=== PATIENT | male | born 1975 | race Caucasian/White ===

== ENCOUNTER 2021-02-26 10:52 | Outpatient (REF) | payer BC, SELFPAY ==
[2021-02-26 11:18] LABS: MANUAL DIFF FLAG NO
[2021-02-26 11:39] LABS: Basophils Absolute Auto 0.1 X10*3/uL (0.0-0.2); Basophils Percent Auto 1.2 % (0-2); Eosinophils Absolute Auto 0.3 X10*3/uL (0.0-0.4); Eosinophils Percent Auto 4.2 % (0-4); Hematocrit 47.9 % (42-52); Hemoglobin 15.7 g/dl (14.0-18.0); Imm Gran Abs Auto 0.03 X10*3/uL (0.00-0.03); Imm Gran Pct Auto 0.5 % (0.0-0.4); Lymphocytes Absolute Auto 1.2 X10*3/uL (1.2-4.9); Lymphocytes Percent Auto 20.5 % (20-40); Mean Corpuscular HGB Conc 32.8 g/dl (31.0-36.0); Mean Corpuscular Hemoglobin 30.8 pg (27.0-33.0); Mean Corpuscular Volume 94.1 fL (80-98); Mean Platelet Volume 10.8 fL (9.4-12.4); Monocytes Absolute Auto 0.5 X10*3/uL (0.1-1.2); NRBC Pct Auto 0.5 /100WBC (0.0-0.2); Neutrophils Absolute Auto 3.9 X10*3/uL (2.0-8.3); Neutrophils Percent Auto 65.6 % (45-73); Platelet Count 197 X10*3/uL (160-400); Red Blood Count 5.09 X10*6/uL (4.60-5.80); Red Cell Distribution Width 12.8 % (11.0-16.0); White Blood Count 5.9 X10*3/uL (4.8-10.8)
[2021-02-26 11:47] LABS: Glucose Urine UA NEG (NEG); Leukocyte Esterase Urine NEG (NEG); Nitrite Urine NEG (NEG); Urine Blood NEG (NEG); Urine Ketones NEG (NEG); Urine Protein NEG (NEG-TRACE)
[2021-02-26 11:48] LABS: Appearance Urine HAZY; Color Urine YELLOW
[2021-02-26 12:10] LABS: Alanine Aminotransferase 29 U/L (0-40); Albumin Level 4.2 g/dL (3.5-5.0); Alkaline Phosphatase 64 U/L (39-117); Anion Gap 17 (12-20); Aspartate Amino Transferase 41 U/L (5-37); Bilirubin Total 0.5 mg/dL (0.0-1.0); Blood Urea Nitrogen 13 mg/dL (9-16); Calcium 9.3 mg/dL (8.4-10.2); Carbon Dioxide 24 mmol/L (22-29); Chloride 105 mmol/L (96-108); Cholesterol 210 mg/dL; Estimated Glomerular Filt Rate 59; Glucose Fasting 96 mg/dL (60-99); HDL Cholesterol 71 mg/dL; LDL Cholesterol Calculated 114 mg/dl; Sodium 141 mmol/L (135-145); Total Protein 6.4 g/dL (6.5-8.0); Triglycerides 128 mg/dL
[2021-02-26 12:36] LABS: PSA,Total (Free>4and<10) 1.97 ng/mL (0.00-4.00)
[2021-02-26 13:44] LABS: Free T4 (Free Thyroxine) 1.06 ng/dL (0.71-1.85)
== END 2021-02-26 10:53 | disposition home or self-care (01) ==
LOC: HO.LNP 10:52
PROVIDERS: PCP Internal Medicine; Visit Provider Internal Medicine
DX: Z00.00 Encounter for general adult medical examination without abnormal findings (principal); Z12.5 Encounter for screening for malignant neoplasm of prostate; E03.9 Hypothyroidism, unspecified
CPT/HCPCS: 80053; 80061; 81003; 84153; 84439; 84443; 85025

== ENCOUNTER 2021-02-28 14:12 | Outpatient (REF) | payer BC, SELFPAY ==
[2021-02-28 14:16] LABS: MANUAL DIFF FLAG NO
[2021-02-28 14:28] LABS: Basophils Absolute Auto 0.1 X10*3/uL (0.0-0.2); Basophils Percent Auto 1.4 % (0-2); Eosinophils Absolute Auto 0.1 X10*3/uL (0.0-0.4); Eosinophils Percent Auto 1.5 % (0-4); Hematocrit 46.8 % (42-52); Hemoglobin 15.5 g/dl (14.0-18.0); Lymphocytes Absolute Auto 1.2 X10*3/uL (1.2-4.9); Lymphocytes Percent Auto 22.6 % (20-40); Mean Corpuscular HGB Conc 33.1 g/dl (31.0-36.0); Mean Corpuscular Hemoglobin 31.1 pg (27.0-33.0); Mean Corpuscular Volume 93.8 fL (80-98); Mean Platelet Volume 10.5 fL (9.4-12.4); Monocytes Absolute Auto 0.4 X10*3/uL (0.1-1.2); Monocytes Percent Auto 8.3 % (2-11); Neutrophils Absolute Auto 3.4 X10*3/uL (2.0-8.3); Neutrophils Percent Auto 66.2 % (45-73); Platelet Count 222 X10*3/uL (160-400); Red Blood Count 4.99 X10*6/uL (4.60-5.80); Red Cell Distribution Width 12.6 % (11.0-16.0); White Blood Count 5.2 X10*3/uL (4.8-10.8)
== END 2021-02-28 14:13 | disposition home or self-care (01) ==
LOC: HO.LNP 14:12
PROVIDERS: Visit Provider Internal Medicine
DX: R79.89 Other specified abnormal findings of blood chemistry (principal)
CPT/HCPCS: 85025

== ENCOUNTER 2021-04-30 10:20 | Outpatient (REF) | payer BC, SELFPAY ==
[2021-04-30 10:23] LABS: MANUAL DIFF FLAG NO
[2021-04-30 10:48] LABS: Basophils Absolute Auto 0.1 X10*3/uL (0.0-0.2); Eosinophils Absolute Auto 0.1 X10*3/uL (0.0-0.4); Eosinophils Percent Auto 2.9 % (0-4); Hematocrit 43.5 % (42-52); Hemoglobin 14.4 g/dl (14.0-18.0); Imm Gran Abs Auto 0.02 X10*3/uL (0.00-0.03); Imm Gran Pct Auto 0.4 % (0.0-0.4); Lymphocytes Absolute Auto 1.2 X10*3/uL (1.2-4.9); Mean Corpuscular HGB Conc 33.1 g/dl (31.0-36.0); Mean Corpuscular Hemoglobin 31.5 pg (27.0-33.0); Mean Corpuscular Volume 95.2 fL (80-98); Mean Platelet Volume 10.8 fL (9.4-12.4); Monocytes Absolute Auto 0.7 X10*3/uL (0.1-1.2); Monocytes Percent Auto 14.8 % (2-11); Neutrophils Absolute Auto 2.7 X10*3/uL (2.0-8.3); Neutrophils Percent Auto 56.9 % (45-73); Platelet Count 181 X10*3/uL (160-400); Red Blood Count 4.57 X10*6/uL (4.60-5.80); Red Cell Distribution Width 12.8 % (11.0-16.0); White Blood Count 4.8 X10*3/uL (4.8-10.8)
== END 2021-04-30 10:21 | disposition home or self-care (01) ==
LOC: HO.LNP 10:20
PROVIDERS: Visit Provider Internal Medicine
DX: R79.89 Other specified abnormal findings of blood chemistry (principal)
CPT/HCPCS: 85025

== ENCOUNTER 2021-06-04 10:29 | Outpatient (REF) | payer BC, SELFPAY ==
[2021-06-04 11:39] LABS: TSH reflex Free T4 0.52 uIU/mL (0.32-4.0)
== END 2021-06-04 10:30 | disposition home or self-care (01) ==
LOC: HO.LNP 10:29
PROVIDERS: Visit Provider Internal Medicine
DX: E03.9 Hypothyroidism, unspecified (principal)
CPT/HCPCS: 84443

== ENCOUNTER 2021-09-06 10:20 | Outpatient (REF) | payer BC, SELFPAY ==
[2021-09-06 11:29] LABS: TSH reflex Free T4 1.58 uIU/mL (0.32-4.0)
== END 2021-09-06 10:21 | disposition home or self-care (01) ==
LOC: HO.LNP 10:20
PROVIDERS: Visit Provider Internal Medicine
DX: E03.9 Hypothyroidism, unspecified (principal)
CPT/HCPCS: 84443

== ENCOUNTER 2022-02-25 11:54 | Outpatient (REF) | payer BC, SELFPAY ==
[2022-02-25 12:00] LABS: MANUAL DIFF FLAG NO
[2022-02-25 12:17] LABS: Basophils Absolute Auto 0.1 X10*3/uL (0.0-0.2); Basophils Percent Auto 1.2 % (0-2); Eosinophils Absolute Auto 0.1 X10*3/uL (0.0-0.4); Eosinophils Percent Auto 1.8 % (0-4); Hematocrit 43.4 % (42.0-52.0); Hemoglobin 14.2 g/dl (14.0-18.0); Imm Gran Abs Auto 0.02 X10*3/uL (0.00-0.03); Imm Gran Pct Auto 0.4 % (0.0-0.4); Lymphocytes Absolute Auto 1.1 X10*3/uL (1.2-4.9); Lymphocytes Percent Auto 22.3 % (20-40); Mean Corpuscular HGB Conc 32.7 g/dl (31.0-36.0); Mean Corpuscular Hemoglobin 30.9 pg (27.0-33.0); Mean Corpuscular Volume 94.6 fL (80.0-98.0); Mean Platelet Volume 10.7 fL (9.4-12.4); Monocytes Absolute Auto 0.5 X10*3/uL (0.1-1.2); Neutrophils Absolute Auto 3.3 x10*3/uL (2.0-8.3); Neutrophils Percent Auto 64.3 % (45-73); Platelet Count 219 X10*3/uL (160-400); Red Blood Count 4.59 X10*6/uL (4.60-5.80); Red Cell Distribution Width 12.8 % (11.0-16.0); White Blood Count 5.1 X10*3/uL (4.8-10.8)
[2022-02-25 12:29] LABS: Alanine Aminotransferase 23 U/L (0-40); Albumin Level 4.1 g/dL (3.5-5.0); Alkaline Phosphatase 78 U/L (39-117); Anion Gap 12 (12-20); Aspartate Amino Transferase 25 U/L (5-37); Bilirubin Total 0.4 mg/dL (0.0-1.0); Blood Urea Nitrogen 15 mg/dL (9-16); Calcium 9.8 mg/dL (8.4-10.2); Carbon Dioxide 29 mmol/L (22-29); Chloride 106 mmol/L (96-108); Cholesterol 174 mg/dL; Estimated Glomerular Filt Rate > 60; Glucose Random 96 mg/dL (60-115); HDL Cholesterol 51 mg/dL; LDL Cholesterol Calculated 112 mg/dl; Potassium 4.5 mmol/L (3.3-5.1); Sodium 142 mmol/L (135-145); Total Protein 6.3 g/dL (6.5-8.0); Triglycerides 55 mg/dL
[2022-02-25 12:50] LABS: PSA,Total (Free>4and<10) 1.54 ng/mL (0.00-4.00); TSH reflex Free T4 0.53 uIU/mL (0.32-4.0)
[2022-02-25 12:52] LABS: Appearance Urine CLEAR; Color Urine YELLOW; Glucose Urine UA NEG (NEG); Leukocyte Esterase Urine NEG (NEG); Nitrite Urine NEG (NEG); Specific Gravity - Urine 1.025 (1.005-1.025); Urine Blood NEG (NEG); Urine Ketones NEG (NEG); Urine Protein NEG (NEG-TRACE)
== END 2022-02-25 11:55 | disposition home or self-care (01) ==
LOC: HO.LNP 11:54
PROVIDERS: Visit Provider Internal Medicine
DX: Z00.00 Encounter for general adult medical examination without abnormal findings (principal); Z12.5 Encounter for screening for malignant neoplasm of prostate; E03.9 Hypothyroidism, unspecified
CPT/HCPCS: 80053; 80061; 81003; 84153; 84443; 85025

== ENCOUNTER 2022-09-08 10:27 | Outpatient (REF) | payer BC, SELFPAY ==
[2022-09-08 11:13] LABS: TSH reflex Free T4 0.04 uIU/mL (0.32-4.0)
[2022-09-08 12:28] LABS: Free T4 (Free Thyroxine) 1.45 ng/dL (0.71-1.85)
== END 2022-09-08 10:28 | disposition home or self-care (01) ==
LOC: HO.LNP 10:27
PROVIDERS: Visit Provider Internal Medicine
DX: E03.9 Hypothyroidism, unspecified (principal)
CPT/HCPCS: 84439; 84443

== ENCOUNTER 2022-12-12 11:18 | Outpatient (REF) | payer BC, SELFPAY ==
[2022-12-12 14:17] LABS: TSH reflex Free T4 3.29 uIU/mL (0.32-4.0)
== END 2022-12-12 11:19 | disposition home or self-care (01) ==
LOC: HO.LNP 11:18
PROVIDERS: Visit Provider Internal Medicine
DX: E03.9 Hypothyroidism, unspecified (principal)
CPT/HCPCS: 84443

== ENCOUNTER 2023-03-06 11:52 | Outpatient (REF) | payer BC, SELFPAY ==
[2023-03-06 11:56] LABS: MANUAL DIFF FLAG NO
[2023-03-06 12:22] LABS: Basophils Absolute Auto 0.1 X10*3/uL (0.0-0.2); Basophils Percent Auto 1.2 % (0-2); Eosinophils Absolute Auto 0.1 X10*3/uL (0.0-0.4); Eosinophils Percent Auto 2.3 % (0-4); Hematocrit 46.1 % (42.0-52.0); Hemoglobin 15.6 g/dl (14.0-18.0); Imm Gran Abs Auto 0.02 X10*3/uL (0.00-0.03); Imm Gran Pct Auto 0.3 % (0.0-0.4); Lymphocytes Absolute Auto 1.5 X10*3/uL (1.2-4.9); Lymphocytes Percent Auto 25.9 % (20-40); Mean Corpuscular HGB Conc 33.8 g/dl (31.0-36.0); Mean Corpuscular Hemoglobin 31.3 pg (27.0-33.0); Mean Corpuscular Volume 92.6 fL (80.0-98.0); Mean Platelet Volume 10.5 fL (9.4-12.4); Monocytes Absolute Auto 0.5 X10*3/uL (0.1-1.2); Monocytes Percent Auto 9.2 % (2-11); Neutrophils Absolute Auto 3.5 x10*3/uL (2.0-8.3); Neutrophils Percent Auto 61.1 % (45-73); Platelet Count 199 X10*3/uL (160-400); Red Blood Count 4.98 X10*6/uL (4.60-5.80); Red Cell Distribution Width 12.5 % (11.0-16.0); White Blood Count 5.8 X10*3/uL (4.8-10.8)
[2023-03-06 12:25] LABS: Appearance Urine Clear; Color Urine Yellow; Glucose Urine UA Negative (Negative); Leukocyte Esterase Urine Negative (Negative); Nitrite Urine Negative (Negative); Specific Gravity - Urine 1.025 (1.005-1.025); UMIC TRIGGER UACC YES; Urine Blood Negative (Negative); Urine Ketones Trace mg/dL (Negative); Urine Protein 30 (1+) mg/dL (Neg-Trace)
[2023-03-06 12:30] LABS: Bacteria Urine None Seen (None Seen); Hyaline Casts Urine 0-2 /LPF (0-2); Squamous Epithelial Cell Urine 0-2 /HPF (0-2); WBC Urine 0-5 /HPF (0-5)
[2023-03-06 12:45] LABS: Alanine Aminotransferase 19 U/L (0-40); Albumin Level 4.3 g/dL (3.5-5.0); Alkaline Phosphatase 76 U/L (39-117); Anion Gap 13 (12-20); Aspartate Amino Transferase 21 U/L (5-37); Bilirubin Total 0.7 mg/dL (0.0-1.0); Blood Urea Nitrogen 18 mg/dL (9-16); Calcium 9.5 mg/dL (8.4-10.2); Carbon Dioxide 27 mmol/L (22-29); Chloride 106 mmol/L (96-108); Cholesterol 185 mg/dL; Estimated Glomerular Filt Rate 59; Glucose Fasting 110 mg/dL (60-99); HDL Cholesterol 49 mg/dL; LDL Cholesterol Calculated 125 mg/dl; Potassium 4.4 mmol/L (3.3-5.1); Sodium 142 mmol/L (135-145); Total Protein 6.3 g/dL (6.5-8.0); Triglycerides 57 mg/dL
[2023-03-06 13:00] LABS: PSA,Total (Free>4and<10) 2.49 ng/mL (0.00-4.00); TSH reflex Free T4 0.84 uIU/mL (0.32-4.0)
== END 2023-03-06 11:53 | disposition home or self-care (01) ==
LOC: HO.LNP 11:52
PROVIDERS: Visit Provider Internal Medicine
DX: Z00.00 Encounter for general adult medical examination without abnormal findings (principal); Z12.5 Encounter for screening for malignant neoplasm of prostate; E03.9 Hypothyroidism, unspecified
CPT/HCPCS: 80053; 80061; 81001; 84153; 84443; 85025

== ENCOUNTER 2023-03-13 15:56 | Outpatient (REF) | payer BC, SELFPAY ==
[2023-03-13 16:29] LABS: Appearance Urine Clear; Color Urine Yellow; Glucose Urine UA Negative (Negative); Leukocyte Esterase Urine Negative (Negative); Nitrite Urine Negative (Negative); PH 6.5 (5.0-9.0); Specific Gravity - Urine 1.025 (1.005-1.025); Urine Blood Negative (Negative); Urine Ketones Trace mg/dL (Negative); Urine Protein Trace mg/dL (Neg-Trace)
[2023-03-13 16:34] LABS: Bacteria Urine None Seen (None Seen); Hyaline Casts Urine 0-2 /LPF (0-2); RBC Urine 0-2 /HPF (0-2); Squamous Epithelial Cell Urine 0-2 /HPF (0-2); WBC Urine 0-5 /HPF (0-5)
== END 2023-03-13 15:57 | disposition home or self-care (01) ==
LOC: HO.LNP 15:56
PROVIDERS: PCP Internal Medicine; Visit Provider Internal Medicine
DX: R31.9 Hematuria, unspecified (principal)
CPT/HCPCS: 81001

== ENCOUNTER 2023-09-07 11:04 | Outpatient (REF) | payer BC, SELFPAY ==
[2023-09-07 11:46] LABS: TSH reflex Free T4 0.14 uIU/mL (0.32-4.0)
[2023-09-07 12:51] LABS: Free T4 (Free Thyroxine) 1.29 ng/dL (0.71-1.85)
== END 2023-09-07 11:05 | disposition home or self-care (01) ==
LOC: HO.LNP 11:04
PROVIDERS: Visit Provider Internal Medicine
DX: E03.9 Hypothyroidism, unspecified (principal)
CPT/HCPCS: 84439; 84443

== ENCOUNTER 2024-03-10 11:02 | Outpatient (REF) | payer BC, SELFPAY ==
[2024-03-10 11:05] LABS: MANUAL DIFF FLAG NO
[2024-03-10 11:26] LABS: Appearance Urine Clear; Color Urine Yellow; Glucose Urine UA Negative (Negative); Leukocyte Esterase Urine Negative (Negative); Nitrite Urine Negative (Negative); PH 6.5 (5.0-9.0); Urine Blood Negative (Negative); Urine Ketones Negative (Negative); Urine Protein Trace mg/dL (Neg-Trace)
[2024-03-10 11:28] LABS: Basophils Absolute Auto 0.1 X10*3/uL (0.0-0.2); Basophils Percent Auto 1.3 % (0-2); Eosinophils Absolute Auto 0.2 X10*3/uL (0.0-0.4); Hematocrit 46.3 % (42.0-52.0); Hemoglobin 15.9 g/dl (14.0-18.0); Imm Gran Abs Auto 0.02 X10*3/uL (0.00-0.03); Imm Gran Pct Auto 0.4 % (0.0-0.4); Lymphocytes Absolute Auto 1.2 X10*3/uL (1.2-4.9); Lymphocytes Percent Auto 23.5 % (20-40); Mean Corpuscular HGB Conc 34.3 g/dl (31.0-36.0); Mean Corpuscular Volume 93.2 fL (80.0-98.0); Mean Platelet Volume 10.8 fL (9.4-12.4); Monocytes Absolute Auto 0.5 X10*3/uL (0.1-1.2); Monocytes Percent Auto 9.8 % (2-11); Neutrophils Absolute Auto 3.3 x10*3/uL (2.0-8.3); Platelet Count 201 X10*3/uL (160-400); Red Blood Count 4.97 X10*6/uL (4.60-5.80); Red Cell Distribution Width 12.5 % (11.0-16.0); White Blood Count 5.3 X10*3/uL (4.8-10.8)
[2024-03-10 11:33] LABS: Bacteria Urine None Seen (None Seen); Hyaline Casts Urine 0-2 /LPF (0-2); RBC Urine 0-2 /HPF (0-2); Squamous Epithelial Cell Urine 0-2 /HPF (0-2); WBC Urine 0-5 /HPF (0-5)
[2024-03-10 11:35] LABS: Alanine Aminotransferase 21 U/L (0-40); Albumin Level 4.3 g/dL (3.5-5.0); Alkaline Phosphatase 76 U/L (39-117); Anion Gap 10 (12-20); Aspartate Amino Transferase 23 U/L (5-37); Bilirubin Total 0.5 mg/dL (0.0-1.0); Blood Urea Nitrogen 10 mg/dL (9-16); Calcium 9.6 mg/dL (8.4-10.2); Carbon Dioxide 31 mmol/L (22-29); Chloride 106 mmol/L (96-108); Cholesterol 173 mg/dL (<200); Estimated Glomerular Filt Rate > 60; Glucose Fasting 98 mg/dL (60-99); HDL Cholesterol 55 mg/dL (>40); LDL Cholesterol Calculated 106 mg/dL (<100); Potassium 4.7 mmol/L (3.3-5.1); Sodium 142 mmol/L (135-145); Total Protein 6.8 g/dL (6.5-8.0); Triglycerides 61 mg/dL (<150)
[2024-03-10 11:51] LABS: PSA,Total (Free>4and<10) 4.11 ng/mL (0.00-4.00); TSH reflex Free T4 0.31 uIU/mL (0.32-4.0)
[2024-03-10 12:25] LABS: Free T4 (Free Thyroxine) 1.14 ng/dL (0.71-1.85)
[2024-03-11 13:23] LABS: Free Prostate Spec Ag 0.3 ng/mL; Percent Free Prostate Spec Ag 8 % (calc) (>25); Prostate Specific Ag Total 3.9 ng/mL (< OR = 4.0)
== END 2024-03-10 11:03 | disposition home or self-care (01) ==
LOC: HO.LNP 11:02
PROVIDERS: Visit Provider Internal Medicine
DX: Z00.00 Encounter for general adult medical examination without abnormal findings (principal); Z12.5 Encounter for screening for malignant neoplasm of prostate; E03.9 Hypothyroidism, unspecified
CPT/HCPCS: 80053; 80061; 81001; 84153; 84154; 84439; 84443; 85025

== ENCOUNTER 2024-03-14 13:28 | Outpatient (REF) | payer BC, SELFPAY ==
[2024-03-14 14:18] LABS: PSA,Total (Free>4and<10) 3.07 ng/mL (0.00-4.00)
== END 2024-03-14 13:29 | disposition home or self-care (01) ==
LOC: HO.LNP 13:28
PROVIDERS: Visit Provider Internal Medicine
DX: R97.20 Elevated prostate specific antigen [PSA] (principal); Z12.5 Encounter for screening for malignant neoplasm of prostate
CPT/HCPCS: 84153

== ENCOUNTER 2024-06-17 11:28 | Outpatient (REF) | payer BC, SELFPAY ==
[2024-06-26 13:43] LABS: Testosterone, Free 78.4 pg/mL (35.0-155.0); Testosterone, Total 627 ng/dL (250-1100)
== END 2024-06-17 11:29 | disposition home or self-care (01) ==
LOC: HO.LNP 11:28
PROVIDERS: Visit Provider Internal Medicine
DX: Z00.00 Encounter for general adult medical examination without abnormal findings (principal)
CPT/HCPCS: 84402; 84403

== ENCOUNTER 2025-01-20 08:26 | Day surgery (SDC) | payer OTHER, SELFPAY ==
[2025-01-18 15:10] VITALS: BMI 24.0
--- NOTE | 2025-01-19 08:50 | HO.ANESPROP2 ---
HPI - Anesthesia Eval Consult details Narrative: 49yo M for Upper Endoscopy with balloon dilitation and Colonoscopy PMFSH Past Medical History Medical History (Updated 01/18/25 @ 15:13 by Michelle Salazar RN) Dysphagia Hyperthyroidism Surgical History Surgical History (Updated 01/18/25 @ 15:12 by Michelle Salazar RN) History of stapedectomy Hx of nasal septoplasty Hx of appendectomy Hx of hand surgery History of ankle surgery Social History Social History (Updated 01/18/25 @ 15:13 by Michelle Salazar RN) Household Members: Spouse Meds Allergies Allergy/AdvReac Type Severity Reaction Status Date / Time No Known Allergies Allergy Verified 01/18/25 15:13 Home Medications ?Medication ?Instructions ?Recorded ?Confirmed ?Last Taken ?Type levothyroxine 200 mcg tablet 200 mcg PO QAM 01/18/25 01/18/25 Unknown History Exam Height,Weight and Vital Signs: Height 6 ft 2 in Weight 84.822 kg Assessment and Plan Assessment Anesthesia Assessment: Chart Reviewed
[2025-01-20 08:49] VITALS: BMI 24.5
[2025-01-20 09:01] VITALS: BP 132/86; PULSE 68; RESP 16; TEMP 36.4; O2SAT 99
--- NOTE | 2025-01-20 09:01 | HO.ANESPROP2 ---
[facility] Past Medical History Medical History (Updated 01/18/25 @ 15:13 by Michelle Salazar RN) Dysphagia Hyperthyroidism Functional capacity: independent ambulation Family History Family history of problems with anesthesia: No Surgical History Surgical History History of stapedectomy Hx of nasal septoplasty Hx of appendectomy Hx of hand surgery History of ankle surgery History of Problems with Anesthesia: No Social History Social History Household Members: Spouse Patient Tobacco Use Status: Never used Tobacco Use of substances other than those prescribed or required for medical reasons: Yes Are you DNR?: No Advance Directives: No Advance Directives Information Provided: Yes Recently lost weight without trying: No Nutrition Risks: No Nutritional Risk Meds Allergies Allergy/AdvReac Type Severity Reaction Status Date / Time No Known Allergies Allergy Verified 01/18/25 15:13 Active Medications: Current Medications Lactated Ringer's (Lr) 1,000 mls @ 100 mls/hr IVCONT .Q10H GILDA Sodium Biphosphate/Sodium Phosphate (Sodium Phosphate,Gem-Dibasic 133 Ml Enema) 133 ml DE ONCE PRN PRN Reason: Poor Colonoscopy Prep Results Home Medications ?Medication ?Instructions ?Recorded ?Confirmed ?Last Taken ?Type levothyroxine 200 mcg tablet 200 mcg PO QAM 01/18/25 01/18/25 Unknown History Exam Height,Weight and Vital Signs: Height 6 ft 2 in Weight 86.5 kg Airway Mallampati Class: II TM Dist: >3cm Neck ROM: Full Heart: RRR Lungs: CTA Assessment and Plan Final Anesthetic Review Family History of Problems with Anesthesia: No History of Problems with Anesthesia: No NPO: Yes ASA Class: II and III Final Preanesthetic Review: Meds/Allgs Chart Reviewed, Consent Obtained/Reviewed and Anes Risks/Benef Reviewed Patient Risk: Low Procedure Risk: Low Anesthetic Plan Anesthetic Plan: MAC: Disposition: Standard PACU
[2025-01-20] MEDS: Lactated Ringers 1,000 ML 100 ML IVCONT (09:10)
[2025-01-20 11:45] VITALS: BP 100/66; PULSE 76; RESP 16; TEMP 36.1; O2SAT 93
--- NOTE | 2025-01-20 11:59 | P.BOP_ITS ---
Brief Operative Note Date of Service: 01/20/25 Pre-op diagnosis: Dysphagia, Screening Post-op diagnosis: other (Gastric ulcer, esophagitis, Colon polyps) Procedure: EGD with biopsies and dilation with an 18 to 19mm balloon, Colonoscopy to the cecum with hot snare polypectomy x 3 and placement of 1 resolution clip at the 50cm polypectomy site. Surgeon: Garry Jeff MD Anesthesia: MAC Was an Rail Car Painter/Sandblaster used for this Procedure?: No Estimated blood loss (mL): 2.0 Pathology: other (A. EG Junction at 40cm B. Gastric antral ulcer C. Gastric antrum D. Transverse colon polyp E. Cecal polyp F. Polyp at 50cm) Condition: stable Disposition: PACU
[2025-01-20 12:00] VITALS: BP 125/85; PULSE 79; RESP 16; O2SAT 96
[2025-01-20 12:12] VITALS: BP 118/88; PULSE 62; RESP 16; TEMP 36.1; O2SAT 96
--- NOTE | 2025-01-20 12:54 | HO.POSTANES ---
Post Anesthesia Evaluation Post Anesthesia Evaluation Date of Service: 01/20/25 Vital Signs: Vital Signs Temp Pulse Resp BP Pulse Ox O2 Del Method O2 Flow Rate 01/20/25 12:12 97 F 62 16 118/88 96 Room Air 01/20/25 12:00 79 16 125/85 96 Room Air 01/20/25 11:45 97 F 76 16 100/66 93 Simple Mask 6 01/20/25 09:01 97.5 F 68 16 132/86 99 Room Air Anesthesia: Monitored Mental Status: Awake Pain Control: Satisfactory Nausea/Vomiting: None Hydration: Adequate Anesthesia-Related Issues: No Anes. Related Issues
--- NOTE | 2025-01-20 22:30 | OP_ITS ---
DATE OF SERVICE: 01/20/2025 SURGEON: Garry Jeff MD INDICATIONS: The patient presents for evaluation of intermittent dysphagia and colorectal cancer screening. Full consent has been obtained from him for this, including risks of bleeding and perforation. PREOPERATIVE DIAGNOSIS: POSTOPERATIVE DIAGNOSIS: PROCEDURE PERFORMED: Esophagogastroduodenoscopy with balloon dilation of gastroesophageal junction, and biopsies, and colonoscopy to the cecum with hot snare polypectomy x3 and placement of 1 resolution clip on the polypectomy site at 50 cm. ESTIMATED BLOOD LOSS: COMPLICATIONS: ANESTHESIA: Monitored anesthesia care. ASSISTANTS: SPECIMENS: PREOPERATIVE DIAGNOSES: Dysphagia and colorectal cancer screening. POSTOPERATIVE DIAGNOSES: Dysphagia and colorectal cancer screening, reflux esophagitis, hiatal hernia, gastric ulcer, gastritis, colon polyps, diverticulosis, and internal hemorrhoids. DESCRIPTION OF PROCEDURE: The patient was placed in the left lateral decubitus position. The [email or web address] video gastroscope was passed in the posterior oropharynx and upper esophagus under direct vision. The scope was passed slowly into the distal esophagus. The gastroesophageal junction appeared at 40 cm. This area was notable for some edema, erythema, and some minimal friability with some minimal erosions. There was no definitive stricture nor ring noted. There was no mass nor Dsouza esophagus noted. The scope easily entered the stomach, there was a small hiatal hernia. The scope was advanced to pylorus. The duodenum was cannulated to the descending portion. There was a minimal duodenitis in the duodenal bulb, was some erythema, but no ulceration nor mass. The scope was withdrawn back to the stomach. The gastric antrum had an approximately 8 mm ulcer with surrounding edema along the greater curvature. It appeared grossly benign and there was no sign of any active bleeding nor visible vessel. Biopsies were obtained from the margins of that. There was some associated gastritis in the antrum as well and biopsies were obtained from that as well. The scope was retroflexed visualizing the proximal stomach carefully which appeared normal, without sign of mass or ulceration. The scope was straightened and withdrawn back to the esophagus. I did use a [employer] incremental balloon from 18 mm to 19 mm to dilate the gastroesophageal junction with some minimal heme noted after dilation. There was very easy to move the scope into and out of the stomach. I did obtain biopsies at the EG junction at 40 cm as well. Proximal to this, the esophageal mucosa appeared normal. The scope was withdrawn from the patient. He was turned around for the colonoscopy. The digital rectal exam revealed no abnormalities. The Olympus video pediatric colonoscope was entered into the rectum and advanced easily to the cecum. Once in the cecum, I did identify cecal pouch with appendiceal orifice and a normal-appearing ileocecal valve. The entire cecum was well visualized. In the cecum, approximately 12 mm polyp, which was removed by hot snare polypectomy, recovered by suction. The polypectomy site appeared clean, without any sign of residual polyp nor bleeding. The scope was then slowly withdrawn assessing all mucosal surfaces carefully. Preparation was excellent. In the transverse colon, an approximately 10 to 12 mm polyp which was removed by hot snare polypectomy and recovered by suction. The polypectomy site appeared clean, without any sign of residual polyp nor bleeding. At 50 cm, it was an approximately 1.5 cm polyp on a stalk which was removed by hot snare polypectomy at the base of the stalk. The polyp was then recovered by retrieving it on the tip of the scope and bring out of the patient. The scope was advanced back to the polypectomy site which appeared clean, without any sign of residual polyp nor bleeding. A single Resolution clip was applied to the polypectomy site with good deployment and good hemostasis. I did not visualize any other polyps, colitis, nor angiodysplasia. There was a mild amount of sigmoid diverticulosis. In the rectum, scope was retroflexed visualizing internal hemorrhoids, but no other pathology. The rectal mucosa appeared normal. The scope was straightened and withdrawn from the patient. He tolerated both procedures well and was returned to the recovery area in stable condition. IMPRESSION: 1. Colon polyps. 2. Diverticulosis. 3. Internal hemorrhoids. 4. Gastric ulcer with associated gastritis. 5. Small hiatal hernia and reflux esophagitis. 6. Status post balloon dilation of gastroesophageal junction. PLAN: The results of the biopsies will be checked. Assuming the polyps are just adenomas, I would recommend a repeat colonoscopy in 3 years. I shall start him on omeprazole 20 mg daily and I have instructed him to avoid all aspirin and NSAIDs long-term. He will be seen in followup as well in regard to the finding of the ulcer and his dysphagia. If the biopsies from the gastric antrum and ulcer are nonrevealing, then he most likely would not need a followup endoscopy given the small size and benign appearance of the ulcer. If H pylori is present in the biopsies, I would recommend treating that as well. Garry Jeff MD RMW/REYNA / [id number]
== END 2025-01-20 12:35 | disposition home or self-care (01) ==
PROVIDERS: PCP Internal Medicine; Visit Provider Internal Medicine
PROC: (CPT 45385; principal; 2025-01-20 10:30)
DX: Z12.11 Encounter for screening for malignant neoplasm of colon (principal); D12.0 Benign neoplasm of cecum; D12.3 Benign neoplasm of transverse colon; D12.5 Benign neoplasm of sigmoid colon; K57.30 Diverticulosis of large intestine without perforation or abscess without bleeding; K64.8 Other hemorrhoids; R13.10 Dysphagia, unspecified; K25.9 Gastric ulcer, unspecified as acute or chronic, without hemorrhage or perforation; K29.50 Unspecified chronic gastritis without bleeding; K29.80 Duodenitis without bleeding; K20.80 Other esophagitis without bleeding; K44.9 Diaphragmatic hernia without obstruction or gangrene; E03.9 Hypothyroidism, unspecified; Z79.899 Other long term (current) drug therapy; Z98.890 Other specified postprocedural states
CPT/HCPCS: 45385; 43249; 43239; 88305; 88342; C1726; J2003; J2704

== ENCOUNTER 2025-01-20 17:45 | Emergency (ER) | payer OTHER, SELFPAY ==
[2025-01-20] VITALS (7 sets, daily range): BP systolic 118–171; BP diastolic 70–89; PULSE 39–65; RESP 14–24; TEMP 36.5–37.1; O2SAT 95–100; BMI 23.7
--- NOTE | ~2025-01-20 | CT_ITS ---
CLINICAL HISTORY: concern for perf after scope, pain CT abdomen and pelvis with IV contrast Comparison: None Findings: Lung bases show no active disease. No dependent layering pleural effusions. The heart is not enlarged. Coronary artery calcifications: None. Liver normal size and contour. No focal hepatic lesions. Patent hepatic and portal veins. Physiologic distention of the gallbladder with no radiopaque gallstones. Homogeneous enhancement of the pancreas. No splenomegaly. Normal adrenal glands. Symmetrical renal excretion with no segmental or diffuse renal parenchymal disease or evidence of obstructive uropathy/hydroureteronephrosis. Normal caliber abdominal aorta. Bowel demonstrates a nonobstructive pattern. No free air. Probable post appendectomy clip.Enterocolitis.No significant diverticular disease. No intraperitoneal, retroperitoneal, pelvic or inguinal masses lymphadenopathy or abnormal fluid collections. Partially decompressed urinary bladder. No vertebral body compression fractures or spondylolisthesis. Tarlov cysts S2. Probable bone island right iliac bone. Impression: 1. Enterocolitis. No significant diverticular disease. Probable post appendectomy. 2. No free air fluid or abscess. No evidence of mechanical bowel obstruction. 3. Ancillary findings as described. This document has been electronically signed by: Eder Razo MD on 01/20/2025 20:39:43
--- NOTE | ~2025-01-20 | CT_ITS ---
CLINICAL HISTORY: concern for perofration after endoscopy CT chest with contrast Comparison: None Findings: Normal heart size. No pericardial effusion. Calcific coronary artery disease: None. Normal caliber thoracic aorta. No evidence of mediastinal hematoma. No pneumomediastinum. 3 mm pulmonary nodule right apex axial image 32. 4 mm pulmonary nodule left base image 141. Consider Fleischner criteria No pneumothorax or pleural effusions, plaques or calcifications. Central airways are patent. No bronchiectasis. No thyroid nodules. No chest wall masses.No axillary adenopathy. Limited view of the upper abdomen is normal. No acute fractures or pathologic bone lesions. Impression: 1. No evidence of mediastinitis. 2. No pneumomediastinum. 3. 3 mm pulmonary nodule right apex and 4 mm pulmonary nodule left base consider Fleischner criteria. Fleischner Society 2017 Guidelines for incidentally detected indeterminate nodules in persons 35 years of age or older. Multiple Solid Nodules: 5 mm or smaller nodules need no follow-up in low risk, and [address] follow-up is optional in high risk patients. This document has been electronically signed by: Eder Razo MD on 01/20/2025 20:46:04
--- NOTE | 2025-01-20 17:56 | ED_ITS ---
HPI - General Adult General Chief complaint: Abdominal Pain Stated complaint: vomiting /procedure done this morning Time Seen by Provider: 01/20/25 18:19 Source: patient and family ( , Marcia) Mode of arrival: ambulatory Limitations: no limitations History of Present Illness ED Provider: Dr. Ryan Oscar HPI narrative: 57-year-old male with a history of atrial fibrillation, hypertension, hypothyroidism, appendectomy, dysphagia who presents emergency department for evaluation shaking chills, diaphoresis, periumbilical cramping which was 8/10 which occurred around 13:00 hours. The patient earlier in the day had endoscopy and colonoscopy. The patient did have esophageal double patient and also has several polyps removed. On presentation to the emergency department , the patient had shaking chills, appear to be in significant distress secondary to his abdominal pain and was actively vomiting. initial vital signs revealed elevated blood pressure 171/89, elevated respiratory of 24 with a temperature of 97.7 degrees F orally Related Data Home Medications ?Medication ?Instructions ?Recorded ?Confirmed levothyroxine 200 mcg tablet 200 mcg PO QAM 01/18/25 01/18/25 Previous Rx's ?Medication ?Instructions ?Recorded cefuroxime axetil 500 mg tablet 500 mg PO Q12H 5 days #10 tabs 01/20/25 Allergies Allergy/AdvReac Type Severity Reaction Status Date / Time No Known Allergies Allergy Verified 01/20/25 17:59 Review of Systems 2 Review of Systems: Yes all other systems are reviewed and are negative PMFSH Past Medical History Medical History (Updated 01/21/25 @ 00:00 by Samantha Alonzo) Dysphagia Hyperthyroidism Surgical History History of stapedectomy Hx of nasal septoplasty Hx of appendectomy Hx of hand surgery History of ankle surgery Social History Social History Household Members: Spouse Alcohol intake: current Alcohol intake frequency: a few times a week Alcohol type: beer Patient Tobacco Use Status: Never used Tobacco Smoked in Last 30 Days: No Use of substances other than those prescribed or required for medical reasons: Yes Substance Use Type: Marijuana Advance Directives: No Advance Directives Information Provided: Yes Do you have a plan to hurt others: No Plan Physical Exam ED Vital Signs: Vital Signs - 24 hr 01/20/25 17:58 01/20/25 18:44 01/20/25 18:50 Temperature 97.7 F Pulse Rate 56 39 L Pulse Rate [Monitor] Respiratory Rate 24 H 15 Blood Pressure 171/89 H Pulse Oximetry 100 Oxygen Delivery Method Room Air 01/20/25 19:09 01/20/25 19:14 01/20/25 20:45 Temperature 98.2 F Pulse Rate 65 Pulse Rate [Monitor] 52 Respiratory Rate 16 14 Blood Pressure 120/76 Pulse Oximetry 95 Oxygen Delivery Method Room Air BMI result Body Mass Index 23.7 Initial vital signs revealed an elevated blood pressure and elevated respiratory rate Exam: General: Awake, alert , in distress secondary to his vomiting abdominal pain, shaking chills, diaphoretic Head: Normocephalic, atraumatic EENT: PERRL, Lids normal, sclera normal, conjunctiva normal, nose normal , ears normal, throat without erythema or exudates Neck: Supple, no adenopathy Lung: breath sounds symmetric, no wheezing, rales or rhonchi Chest: symmetric movement, nontender Heart: regular rate and rhythm, normal S1, S2 no murmurs or rubs Abdomen: voluntary guarding, moderate diffuse tenderness with moderate to severe periumbilical tenderness and left lower quadrant tenderness Back: no vertebral tenderness, no CVAT Extremities: no deformities, moves all extremities symmetrically Neuro: Awake, alert, oriented, normal speech, cranial nerves intact, moves all extremities symmetrically Psych: Pleasant, cooperative Course Course Course Narrative: RME performed by Sole Brooks PA-C. Patient is a 49 year old assigned male at presenting to the emergency department with nausea, vomiting, and abdominal pain. Patient states that Dr. Jeff performed an endoscopy and a colonoscopy today and now he is having nausea, vomiting, abdominal pain. Detailed physical exam and review of systems are deferred to the technical fellow. EKG, labs, imaging, and swabs ordered. junior recruiter aware. Medications Administered Discontinued Medications Generic Name Dose Route Start Last Admin Trade Name Freq PRN Reason Stop Dose Admin Cefuroxime Axetil 500 mg 01/20/25 22:45 01/20/25 22:49 Cefuroxime Axetil 500 Mg Tablet PO 01/20/25 22:46 500 mg ONCE ONE Administration Hydromorphone HCl 1 mg 01/20/25 18:25 01/20/25 18:44 Hydromorphone Hcl 1 Mg/Ml Syringe IVPUSH 01/20/25 18:26 1 mg ONCE STA Administration Protocol Piperacillin Sod/Tazobactam 100 mls @ 200 mls/hr 01/20/25 18:25 01/20/25 19:30 Sod 4.5 gm/ Sodium Chloride IV 01/20/25 18:54 Infused ONCE ONE Infusion Iohexol 100 ml 01/20/25 19:29 01/20/25 19:29 Iohexol 350 Mg/Ml 100 Ml Infus..Btl IV 01/20/25 19:30 85 ml ONCE ONE Administration Ondansetron HCl 4 mg 01/20/25 18:25 01/20/25 18:44 Ondansetron Hcl 4 Mg/2 Ml Vial IVPUSH 01/20/25 18:26 4 mg ONCE ONE Administration Medical Decision Making Medical Decision Making MDM Narrative: 57-year-old male with a history of atrial fibrillation, hypertension, hypothyroidism, appendectomy, dysphagia who presents emergency department for evaluation shaking chills, diaphoresis, periumbilical cramping which was 8/ which occurred around 13:00 hours. The patient earlier in the day had endoscopy and colonoscopy. The patient did have esophageal double patient and also has several polyps removed. On presentation to the emergency department , the patient had shaking chills, appear to be in significant distress secondary to his abdominal pain and was actively vomiting. initial vital signs revealed elevated blood pressure 171/89, elevated respiratory of 24 with a temperature of 97.7 degrees F orally Differential diagnosis: Includes but is not limited to bacteremia induced by endoscopy/colonoscopy, esophageal rupture, pneumothorax, colon perforation, viral syndrome, COVID-19, influenza, RSV, anemia, electrolyte abnormalities Course: my interpretation patient's laboratory evaluation is as follows: WBC elevated 14,000 with 89 neutrophils. H&H was normal. INR was normal. LFTs were normal. Lactic acid Normal 1.9. Glucose elevated 204. COVID-19, influenza, RSV negative. Twelve EKG revealed no significant abnormalities CT scan of the chest,abdomen and pelvis with IV contrast did not reveal any acute abnormalities which is very reassuring. Patient was treated with hydro morphine 1 mg IV, Zofran 4 mg IV, piperacillin 4.5 g IV. The patient was seen here in the emergency department by his umbrella tipper machine Dr. Jeff. The patient did improve after the above treatment. At this time I am still concerned that the patient may have had bacteremia and that might explain his shaking chills and his symptoms. Therefore the patient was given a prescription for cefuroxime 500 mg q.12 hours as 5 days. He was advised to take Tylenol for pain and fever. He was given printed and verbal instructions discharged home. Admission/Observation Consideration of admission/observation: Escalation of care including admission/observation considered ( yes) Lab Data MDM Lab Attestation statement: I reviewed the patient's lab results. 01/20/25 18:32 01/20/25 18:32 Labs: Lab Results 01/20/25 01/20/25 01/20/25 Range/Units 18:32 18:33 18:39 WBC 14.0 H (4.8-10.8) X10*3/uL RBC 5.12 (4.60-5.80) X10*6/uL Hgb 16.6 (14.0-18.0) g/dl Hct 45.4 (42.0-52.0) % MCV 88.7 (80.0-98.0) fL MCH 32.4 (27.0-33.0) pg MCHC 36.6 H (31.0-36.0) g/dl RDW 12.3 (11.0-16.0) % Plt Count 241 (160-400) X10*3/uL MPV 10.3 (9.4-12.4) fL Immature Gran % (Auto) 0.4 (0.0-0.4) % Neut % (Auto) 89.4 H (45-73) % Lymph % (Auto) 5.3 L (20-40) % Pender % (Auto) 4.5 (2-11) % Eos % (Auto) 0.1 (0-4) % Baso % (Auto) 0.3 (0-2) % Lymph # (Auto) 0.7 L (1.2-4.9) X10*3/uL Pender # (Auto) 0.6 (0.1-1.2) X10*3/uL Eos # (Auto) 0.0 (0.0-0.4) X10*3/uL Baso # (Auto) 0.0 (0.0-0.2) X10*3/uL Abs Immat Gran (auto) 0.06 H (0.00-0.03) X10*3/uL Absolute Neuts (auto) 12.5 H (2.0-8.3) x10*3/uL Absolute Nucleated RBC 0.000 (0.0-0.012) X10*3/uL Nucleated RBC % (auto) 0.0 (0.0-0.2) /100WBC PT 11.5 (10.9-12.4) SEC INR 1.0 (0.9-1.1) Sodium 142 (135-145) mmol/L Potassium 4.2 (3.3-5.1) mmol/L Chloride 105 (96-108) mmol/L Carbon Dioxide 23 (22-29) mmol/L Anion Gap 18 (12-20) BUN 12 (9-16) mg/dL Creatinine 1.30 (0.5-1.4) mg/dL Estim Creat Clear Calc 79.0 Estimated GFR 58 Random Glucose 204 H (60-115) mg/dL Lactic Acid 1.9 (0.5-2.0) mmol/L Calcium 10.7 H D (8.4-10.2) mg/dL Magnesium 1.6 (1.6-2.6) mg/dL Total Bilirubin 0.9 (0.0-1.0) mg/dL AST 27 (5-37) U/L ALT 29 (0-40) U/L Alkaline Phosphatase 78 (39-117) U/L Troponin I High Sens 3.3 (<3.5-35.0) ng/L Total Protein 7.7 (6.5-8.0) g/dL Albumin 4.7 (3.5-5.0) g/dL Influenza Type A (PCR) NEGATIVE (Negative) Influenza Type B (PCR) NEGATIVE (Negative) RSV RNA Qual (PCR) NEGATIVE (Negative) SARS-CoV-2 RNA (RT-PCR) NEGATIVE (Negative) Blood Type O Positive Antibody Screen NEGATIVE Independent Interpretation I performed an independent interpretation of an: EKG Interpretation: my independent interpretation of the patient's 12 EKG done on 01/20/2025 at 18:21 hours is as follows: Sinus bradycardia with a rate of 51, normal MI interval, QRS duration QTC interval, no ST segment elevation, no ST segment depression, no significant T-wave abnormalities except for the sinus bradycardia this is a normal EKG. There is no old EKG for comparison. Radiology Impression Discussion of test interpretation with radiology: I have reviewed the radiologist's reading. Radiologist Impression: CT chest with contrast Comparison: None Findings: Normal heart size. No pericardial effusion. Calcific coronary artery disease: None. Normal caliber thoracic aorta. No evidence of mediastinal hematoma. No pneumomediastinum. 3 mm pulmonary nodule right apex axial image 32. 4 mm pulmonary nodule left base image 141. Consider Fleischner criteria No pneumothorax or pleural effusions, plaques or calcifications. Central airways are patent. No bronchiectasis. No thyroid nodules. No chest wall masses.No axillary adenopathy. Limited view of the upper abdomen is normal. No acute fractures or pathologic bone lesions. Impression: 1. No evidence of mediastinitis. 2. No pneumomediastinum. 3. 3 mm pulmonary nodule right apex and 4 mm pulmonary nodule left base consider Fleischner criteria. Fleischner Society 2017 Guidelines for incidentally detected indeterminate nodules in persons 35 years of age or older. Multiple Solid Nodules: 5 mm or smaller nodules need no follow-up in low risk, and [address] follow-up is optional in high risk patients. This document has been electronically signed by: Eder Razo MD on 01/20/2025 20:46:04 CT abdomen and pelvis with IV contrast Comparison: None Findings: Lung bases show no active disease. No dependent layering pleural effusions. The heart is not enlarged. Coronary artery calcifications: None. Liver normal size and contour. No focal hepatic lesions. Patent hepatic and portal veins. Physiologic distention of the gallbladder with no radiopaque gallstones. Homogeneous enhancement of the pancreas. No splenomegaly. Normal adrenal glands. Symmetrical renal excretion with no segmental or diffuse renal parenchymal disease or evidence of obstructive uropathy/hydroureteronephrosis. Normal caliber abdominal aorta. Bowel demonstrates a nonobstructive pattern. No free air. Probable post appendectomy clip.Enterocolitis.No significant diverticular disease. No intraperitoneal, retroperitoneal, pelvic or inguinal masses lymphadenopathy or abnormal fluid collections. Partially decompressed urinary bladder. No vertebral body compression fractures or spondylolisthesis. Tarlov cysts S2. Probable bone island right iliac bone. Impression: 1. Enterocolitis. No significant diverticular disease. Probable post appendectomy. 2. No free air fluid or abscess. No evidence of mechanical bowel obstruction. 3. Ancillary findings as described. This document has been electronically signed by: Eder Razo MD on 01/20/2025 20:39:43 Independent Historian Clinical information obtained from an independent historian. History obtained from or confirmed by: Spouse Prescription Management I considered prescription management with: Antibiotic ( cefuroxime) Critical Care Time Critical Care Time Critical Care Time: Yes Total Critical Care Time: 45 Attestation: Critical Care: The patient was critically ill with a high probability of imminent or life threatening deterioration. I spent greater than 30 minutes of discontinuous time evaluating the patient,delivering critical care at the bedside, discussing and evaluating pertinent data with consultants. Critical care time does not include time spent performing separately billable procedures or teaching. Total time spent performing critical care was 45 minutes. Discharge Plan Discharge Clinical Impression: Abdominal pain, Chill, Nausea and vomiting, Status post endoscopy, Status post colonoscopy Patient Disposition: Home, Self-Care Instructions: Abdominal Pain (ED) Additional Instructions: Your blood work was unremarkable except for mild elevation in your white blood cell count at 14,000 (normal is 4,800-10,300). The CT scan of your chest, abdomen pelvis did not reveal any significant abnormalities to explain your abdominal pain. There was no bowel perforation which is very reassuring. At this time I do not have a clear cause for your symptoms, however I am concerned that you may have had transient bacteremia (bacteria that was in your blood stream caused either by the biopsies or with the procedure itself). You were treated here in the emergency department with Dilaudid and Zofran for your pain, nausea and vomiting. You also received an IV antibiotic called Zosyn (piperacillin and tazobactam). You were seen by Dr. Jeff at this time we both think that you can go home however if you develop abdominal pain, fever, chills, nausea vomiting you need to return to the emergency department for re-evaluation and possible admission for IV antibiotics. I am going to start you on an oral antibiotic called cefuroxime 500 mg pills, 1 pill Take ibuprofen 200 mg pills, 2 pills every 6 hours as needed for pain or fever. Take Tylenol (acetaminophen) 500 mg pills, 2 pills every 6 hours as needed for pain or fever. Follow-up with with Dr. Jeff as directed on your postoperative directions Please return to the emergency department if your symptoms get worse or if you develop any symptoms that are concerning to you. Prescriptions: New cefuroxime axetil 500 mg tablet 500 mg PO Q12H 5 Days Qty: 10 0RF No Action levothyroxine 200 mcg tablet 200 mcg PO QAM Interventions: ED Discharge Assessment Last Done: 01/20/25 22:39 Discharge Date/Time: 01/20/25 22:54 Print Language: Estonian
--- NOTE | 2025-01-20 17:58 | ECG_ITS ---
Test Reason : weakness n/v Blood Pressure : */* mmHG Vent. Rate : 51 BPM Atrial Rate : 51 BPM P-R Int : 124 ms QRS Dur : 98 ms QT Int : 446 ms P-R-T Axes : 47 94 86 degrees QTcB Int : 411 ms Sinus bradycardia with sinus arrhythmia Rightward axis Borderline ECG No previous ECGs available Referred By: Sole Brooks Electronically Signed By: CHARLINE BRITTON MD
[2025-01-20 18:38] LABS: MANUAL DIFF FLAG NO
[2025-01-20] MEDS: ondansetron HCL 4 MG/2 ML VIAL IVPUSH (18:44)
[2025-01-20] MEDS: Piperacillin Sodium/Tazobactam 4.5 GM in 0.9 % Sodium Chloride 100 ML IV (18:44)
[2025-01-20] MEDS: HYDROmorphone HCl 1 MG/ML SYRINGE IVPUSH (18:44)
--- NOTE | 2025-01-20 18:49 | PC.NURSE ---
observed HR go to 39 BPM on the monitor, this RN went bedside to evaluate pt, pt leaning against , continues to report pain, but alert. Dr. Oscar made aware.
[2025-01-20 18:52] LABS: Prothrombin Time 11.5 SEC (10.9-12.4)
[2025-01-20 18:56] LABS: Lactic Acid 1.9 mmol/L (0.5-2.0)
[2025-01-20 18:57] LABS: Alanine Aminotransferase 29 U/L (0-40); Albumin Level 4.7 g/dL (3.5-5.0); Alkaline Phosphatase 78 U/L (39-117); Anion Gap 18 (12-20); Aspartate Amino Transferase 27 U/L (5-37); Bilirubin Total 0.9 mg/dL (0.0-1.0); Blood Urea Nitrogen 12 mg/dL (9-16); Calcium 10.7 mg/dL (8.4-10.2); Carbon Dioxide 23 mmol/L (22-29); Chloride 105 mmol/L (96-108); Estimated Glomerular Filt Rate 58; Glucose Random 204 mg/dL (60-115); Magnesium 1.6 mg/dL (1.6-2.6); Potassium 4.2 mmol/L (3.3-5.1); Sodium 142 mmol/L (135-145); Total Protein 7.7 g/dL (6.5-8.0)
[2025-01-20 19:04] LABS: Troponin-I High Sensitivity 3.3 ng/L (<3.5-35.0)
--- OUTSIDE RECORDS SUMMARY | 2025-01-20 19:04 | XMS_ITS ---
Author Organization [facility] Address [address] [place] [id number] Care Team Providers Care Insurance Broker Name Role Phone Ranjit Xiao MD Primary Care Provider Garry Navas [phone] Allergies No Known Allergies REASON FOR VISIT Patient presents today for a COLON SCREENING Medications Medication SIG (Take, Route, Frequency, Duration) Notes Start Date End Date Status Levothyroxine Sodium 200 MCG Oral for 90 Active Social History Tobacco Use: Social History Observation Description Date Details (start date - stop date) Never Smoker NA - NA Tobacco Use/Smoking Question Answer Notes Patient is a nonsmoker Alcohol Screen Question Answer Notes Did you have a drink contain ing alcohol in the past year? Yes How often did you have a dri nk containing alcohol in the past year? 2 to 4 times a month (2 points) How many drinks did you have on a typical day when you were drinking in the past year? 3 or 4 drinks (1 point) Points 3 Interpretation Negative Section Notes: Nonsmoker; no sig alcohol Problems Problem Type SNOMED Code ICD Code Onset Dates Problem Status W/U Status Risk Notes Problem Dysphagia (00866289) Dysphagia (R13.10) Active confirmed Problem Colon cancer screening (717606435) Colon cancer screening (Z12.11) Active confirmed Vital Signs Blood pressure systolic 00 mm Hg 10/21/20 24 Blood pressure diastolic 00 mm Hg 024 Height 6 ft 2 in in 10/21/2024 Weight 187 lbs 10/21/2024 BMI 24.01 kg/m2 10/21/2024 Encounters Encounter Location Date Provider Diagnosis [facility] [address] [place] [address] 10/21/2024 Garry Jeff Dysphagia R13.10 and Colon cancer screening Z12.11 Assessments Encounter Date Diagnosis (ICD Code) Assessment Notes Treatment Notes Treatment Clinical Notes Section Notes 10/21/2024 Dysphagia (ICD-10 - R13.10) Overall, Dwight appears quite well. In regard to his intermittent dysphagia, this may represent something such as an esophageal ring or mild stricture. This does not sound like anything worrisome such as a neoplasm. I did advise him that I would recommend he undergo an upper endoscopy with possible balloon dilation rather than a barium swallow. I also recommended a screening colonoscopy on the same day given his age and excellent clinical appearance. We did review the rationale for this in regard to colon cancer prevention. Full consent was obtained from him for both procedures, including risks of bleeding and perforation. The procedures will be done monitored anesthesia care. I did advise him to be sure to cancel his barium swallow with the radiology department in the meantime. Dwight was comfortable with this plan. Thank you again for allowing me to participate in Dwight's care. I shall continue to keep you advised of this progress. 10/21/2024 Colon cancer screening (ICD-10 - Z12.11) Overall, Dwight appears quite well. In regard to his intermittent dysphagia, this may represent something such as an esophageal ring or mild stricture. This does not sound like anything worrisome such as a neoplasm. I did advise him that I would recommend he undergo an upper endoscopy with possible balloon dilation rather than a barium swallow. I also recommended a screening colonoscopy on the same day given his age and excellent clinical appearance. We did review the rationale for this in regard to colon cancer prevention. Full consent was obtained from him for both procedures, including risks of bleeding and perforation. The procedures will be done monitored anesthesia care. I did advise him to be sure to cancel his barium swallow with the radiology department in the meantime. Dwight was comfortable with this plan. Thank you again for allowing me to participate in Dwight's care. I shall continue to keep you advised of this progress. Plan Of Treatment Future Test Test Name Order Date UPPER GI ENDOSCOPY BALLOOON DILATION OF ESOPH 10/21/2024 COLONOSCOPY 10/21/2024 Next Appt Details Follow Up: prn, Reason: Progress Notes * DWIGHT COTADOB:1975 ( 49 yo M)Acc No.[id number]:10/21/2024 Progress Notes Patient:?DWIGHT COTA Provider:?Garry Jeff MD :1975???Age:49 Y???Sex:Male Scotty e:10/21/2024 Address: [address] [id number] Pcp:Ranjit Xiao MD Subjective: * Chief Complaints: * ???Patient presents today fo r a COLON SCREENING * HPI: ???incontinence:? I saw Dwight in consultation today in regard to further evaluation of his dysphagia and need for colorectal cancer screening. ?As you know, Dwight is a healthy 49-year-old male who presently feels very well. He enjoys a good appetite and denies any significant heartburn. However, he does describe occasional episodes of dysphagia to things like bread or tuna fish. He describes these episodes can last for a couple of minutes and will not allow him to swallow even water. The episodes are not particularly frequent and are not associated with things like chicken or meat. He denies any nausea, vomiting, nor early satiety. He does advise me that he is scheduled for a barium swallow sometime into next year. ?He denies any abdominal pain, jaundice, nor weight loss. He denies any change in bowel habits, signs of bleeding, or family history of colorectal cancer. He has never had an endoscopy or colonoscopy. * ROS:?General/Constitutional:?Change in appetite?denies.?Chills?denies.?Fatigue?denies.?Ophthalmologic:?Comments?all negative.?ENT:?Comments?all negative.?Respiratory:?hemoptysis?denies.?Cough?denies.?Cardiovascular:?Chest pain?denies.?Orthopnea?denies.?Gastrointestinal:?Comments?See HPI for details.?Genitourinary:?Hematuria?denies.?Dysuria?denies.?Musculoskeletal:?Painful joints?denies.?Weakness?denies.?Skin:?Itching?denies.?Rash?denies.?Neurologic:?Headache?denies.?Seizures?denies.?Psychiatric:?Comments?all negative.? * Medical History:? * Surgical History:?ankle surg ucu-odsgk-[id number] times 20 yrs agoright hand surgery appendectomy deviated septum stapedectomy * Hospitalization/Major Diagno stic Procedure:?No Hospitalization History. * Family History:?Father: dece ased.?Mother: alive.? no known hx of colon ca. * Social History:?Tobacco Use:?Tobacco Use/Smoking?Patient is a?nonsmoker.?Drugs/Alcohol:?Alcohol Screen?Did you have a drink containing alcohol in the past year??Yes,?How often did you have a drink containing alcohol in the past year??2 to 4 times a month (2 points),?How many drinks did you have on a typical day when you were drinking in the past year??3 or 4 drinks (1 point),?Points?3,?Interpretation?Negative.?Miscellaneous:?Marital status: . 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 ???Nonsmoker; no sig alcohol. * Medications:?TakingLevothyro xine Sodium 200 MCG Tablet Oral Medication List reviewed and reconciled with the patientTaking Levothyroxine Sodium 200 MCG Tablet Oral Medication List reviewed and reconciled with the patient * Allergies:?N.K.D.A.yes[Aller gies Verified] Objective: * Vitals:?Wt: 187 lbs, Ht: 6 f t 2 in, BMI:24.01 Index, BP: 00/00 mm Hg. * Examination: ???General Examination: ?GENERAL APPEARANCE:?pleasant, well nourished, well developed, in no acute distress.?EYES:?sclera non-icteric.?ORAL CAVITY:?mucosa moist.?NECK/THYROID:?no cervical lymphadenopathy, neck supple.?SKIN:?nonjaundiced, no spider angiomata.?HEART:?S1, S2 normal.?LUNGS:?clear to auscultation bilaterally.?ABDOMEN:?normal bowel sounds, no guarding or rigidity, no guarding or rigidity, no masses palpable, soft, nontender, nondistended.?EXTREMITIES:?no edema.?NEUROLOGIC:?alert and oriented.? Assessment: * Assessment: 1.?Dysphagia - R13.10 (Prima ry)?2.?Colon cancer screening - Z12.11? Overall, Dwight appears quite well. In regard to his intermittent dysphagia, this may represent something such as an esophageal ring or mild stricture. This does not sound like anything worrisome such as a neoplasm. I did advise him that I would recommend he undergo an upper endoscopy with possible balloon dilation rather than a barium swallow. I also recommended a screening colonoscopy on the same day given his age and excellent clinical appearance. We did review the rationale for this in regard to colon cancer prevention. Full consent was obtained from him for both procedures, including risks of bleeding and perforation. The procedures will be done monitored anesthesia care. I did advise him to be sure to cancel his barium swallow with the radiology department in the meantime. Dwight was comfortable with this plan. Thank you again for allowing me to participate in Dwight's care. I shall continue to keep you advised of this progress. Plan: * Treatment: 2.?Colon cancer screening?Procedure: COLONOSCOPY (Ordered for 10/21/2024)* sched for 01/20/25 at 1:30 pmm acmiralax * Procedure Codes:?3017F COLOR ECTAL CA SCREEN DOC [id number] TOBACCO [id number] BP SCR NOT PRFRM REC REASON NOS * Follow Up:?prn * * Sign off status: Completed true * Provider:?Garry Jeff MD Date:? 024 Generated for Manish winter/Beck/Brian on:?01/20/2025 07:04 PM EST History and Physical Notes * HPI (History of Present Illness) Category Sub-Category Detail Notes Category Not es incontinence I saw Dwight in consultation today in regard to further evaluation of his dysphagia and need for colorectal cancer screening. As you know, Dwight is a healthy 49-year-old male who presently feels very well. He enjoys a good appetite and denies any significant heartburn. However, he does describe occasional episodes of dysphagia to things like bread or tuna fish. He describes these episodes can last for a couple of minutes and will not allow him to swallow even water. The episodes are not particularly frequent and are not associated with things like chicken or meat. He denies any nausea, vomiting, nor early satiety. He does advise me that he is scheduled for a barium swallow sometime into next year. He denies any abdominal pain, jaundice, nor weight loss. He denies any change in bowel habits, signs of bleeding, or family history of colorectal cancer. He has never had an endoscopy or colonoscopy Examination Category Sub-Category Detail Notes Category Not es General Examination GENERAL APPEARANCE: pleasant , well nourished, well developed, in no acute distress HEAD: EYES: sclera non-icteric EARS: NOSE: THROAT: NECK/THYROID: no cervical lymphade nopathy, neck supple HEART: S1, S2 normal CHEST: LUNGS: clear to auscultatio n bilaterally ABDOMEN: normal bowel sounds, no guarding or rigidity, no guarding or rigidity, no masses palpable, soft, nontender, nondistended NEUROLOGIC: alert and oriented SKIN: nonjaundiced, no spi kim angiomata EXTREMITIES: no edema PERIPHERAL PULSES: BACK: BREASTS: MUSCULOSKELETAL: MALE GENITOURINARY: LYMPH NODES: RECTAL EXAM: FEMALE GENITOURINARY: ORAL CAVITY: mucosa moist
--- OUTSIDE RECORDS SUMMARY | 2025-01-20 19:04 | XMS_ITS | Patient Health Record ---
Author Organization [facility] Address [address] [place] [address] Care Team Providers Care Bed Laster Name Role Phone Ranjit Xiao MD Primary Care Provider Garry Navas Unavailable [phone] Allergies No Known Allergies Reason For Referral No Information Medications Medication SIG (Take, Route, Frequency, Duration) [...] Problem Status W/U Status Risk Notes Problem Colon cancer screening (061028846) Colon cancer screening (Z12.11) Active confirmed Problem Dysphagia (37569137) Dysphagia (R13.10) Active confirmed Vital Signs Blood pressure diastolic 00 mm Hg 10/21/2024 Height 6 ft 2 in in 10/21/2024 Blood pressure systolic 00 mm Hg 10/21/2024 Weight 187 lbs 10/21/2024 BMI 24.01 kg/m2 10/21/2024 Encounters Encounter Location Date Provider Diagnosis [facility] Outpatient [address] [place] [phone] 01/20/2025 Garry Jeff [facility] [address] [place] [address] 10/21/2024 Garry Jeff Dysphagia R13.10 and Colon cancer screening Z12.11 Assessments Encounter Date Diagnosis (ICD Code) Assessment Notes Treatment Notes Treatment Clinical Notes Section Notes 10/21/2024 Colon cancer screening (ICD-10 - Z12.11) [...] keep you advised of this progress. 10/21/2024 Dysphagia (ICD-10 - R13.10) Overall, Dwight [...] BALLOOON DILATION OF ESOPH 10/21/2024 COLONOSCOPY 10/21/2024 Insurance Providers Payer Name Payer Address Payer Phone Subscriber Number Group Number Insured Name Patient Relationship to Insured Coverage Start Date Coverage End Date [facility] [address] [place] [id number] DWIGHT COTA Self - patient is the insured [place] [address] [place] [address] [id number] DWIGHT COTA Self - patient is the insured Medical (General) History Medical History History ICD Code Hyperthyroidsim with subsequent hypothry 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
--- OUTSIDE RECORDS SUMMARY | 2025-01-20 19:04 | XMS_ITS ---
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 Name Role Phone Ranjit Xiao Primary Care Provider Allergies No Known Allergies Results Component Value Reference Range Notes Testosterone, Free/Total Reviewed date:06/27/2024 08:12:04 AM Interpretation: Performing Lab:[facility], [address] [place] [phone] Notes/Report: Testosterone, Total [phone] ng/dL For additional information, please refer to http://education.[employer].com/faq/ [email or web address] (This link is being provided for informational/ educational purposes only.) This test was developed and its analytical performance characteristics have been determined by [employer] [place], [place]. It has not been cleared or approved by the U.S. Food and Drug Administration. This assay has been validated pursuant to the CLIA regulations and is used for clinical purposes. Testosterone, Free 78.4 35.0-155.0 pg/mL This test was developed and its analytical performance characteristics have been determined by [employer] [place], [place]. It has not been cleared or approved by the U.S. Food and Drug Administration. This assay has been validated pursuant to the CLIA regulations and is used for clinical purposes. THIS TEST WAS PERFORMED AT: [employer] [facility] CONCHITA URIBE MD,PHD Reason For Referral Reason SCREEN FOR COLON CAN CER Diagnosis 1 Screen for colon can cer (Z12.11) Referral Organization Ranjit Xiao MD Referring Provider First Name Ranjit Referring Provider Last Name Ninoska Referring Provider Speciality Internal M edicine Referred Provider Garry Campos Referred Provider Specialty Gastroentero logdotty General Notes Abigail Henriquez 06/21/2024 11:26:14 AM EDT > REFERRAL FAXED 06/17/24, Abigail Henriquez 11/04/2024 11:36:10 AM EST > PER USAMA ROSALES KEPT APPT AND IS SCHEDULED FOR UPPER, LOWER JANUARY 20 FAX NOTE WHEN LOCKED, Abigail Henriquez 11/18/2024 07:59:58 AM EST > OFFICE NOTE RECD Referral Priority Routine Referral Appointment Date 10/21/2024 REASON FOR VISIT annual visit, NO Covid symptoms Medications Medication SIG (Take, Route, Frequency, Duration) Notes Start Date End Date Status Levothyroxine Sodium 200 MCG take 1 tablet by mouth every day in the morning on an empty stomach Orally Once a day for 90 days Active Flonase 50 MCG/ACT 1 spray in each nostril Nasally Once a day for 30 day(s) 03/13/2014 Not-Taking Social History Tobacco Use: Social History Observation Description Date Details (start date - stop date) Never Smoker NA - NA Tobacco Use/Smoking Question Answer Notes Patient is a nonsmoker Additional Findings: Tobacco Non-User Cu rrent non-smoker, currently using no form of tobacco Alcohol Screen Question Answer Notes Did you have a drink contain ing alcohol in the past year? Yes How often did you have a dri nk containing alcohol in the past year? 2 to 4 times a month (2 points) How many drinks did you have on a typical day when you were drinking in the past year? 1 or 2 drinks (0 point) How often did you have 6 or more drinks on one occasion in the past year? Never (0 point) Points 2 Interpretation Negative Vital Signs Blood pressure systolic 122 mm Hg 06/17/20 24 Blood pressure diastolic 74 mm Hg 024 Height 74 in 06/17/2024 Weight 201 lbs 06/17/2024 BMI 25.80 kg/m2 06/17/2024 weight is down [address] [facility] 03-14-24 Encounters Encounter Location Date Provider Diagnosis Ranjit Xiao MD [address] [place], [place] [phone] 06/17/2024 Ranjit Xiao Annual physical exam Z00.00 ; Esophageal dysphagia R13.19 ; Skin lesion L98.9 ; Acquired hypothyroidism E03.9 ; Colon cancer screening Z12.11 and Depression screening Z13.31 Assessments Encounter Date Diagnosis (ICD Code) Assessment Notes Treatment Notes Treatment Clinical Notes Section Notes 06/17/2024 Annual physical exam (ICD-10 - Z00.00) labs reviewed and discussed with patient, referral to dr campos for colonoscopy/ REFFERAL TO BE FAXED WHEN NOTE LOCKED 06/17/2024 Esophageal dysphagia (ICD-10 - R13.19) pending diagnostic testing, [place] [facility] [place]EDUL[place] FOR 08/25/24 @ 9:30AM .PATIENT INFORMED 06/17/2024 Skin lesion (ICD-10 - L98.9) referral to dermatology/ ALL INFO GIVEN TO CONNIE FOR [facility] 06/17/2024 Acquired hypothyroidism (ICD-10 - E03.9) stable, will continue current regiment 06/17/2024 Colon cancer screening (ICD-10 - Z12.11) no stool present, will call GI to schedule colonoscopy. 06/17/2024 Depression screening (ICD-10 - Z13.31) negative screen Plan Of Treatment Medication Medication Name Sig Start Date Stop Date Notes Levothyroxine Sodium 200 MCG take 1 tabl et by mouth every day in the morning on an empty stomach Orally Once a day for 90 days Treatment Notes Assessment Notes Annual physical exam labs reviewed and d iscussed with patient, referral to dr campos for colonoscopy/ REFFERAL TO BE FAXED WHEN NOTE LOCKED Esophageal dysphagia pending diagnostic testing, THE [place] [facility] [place] SCHEDULED FOR 08/25/24 @ 9:30AM .PATIENT INFORMED Skin lesion referral to dermatol ogy/ ALL INFO GIVEN TO CONN[facility] Acquired hypothyroidism stable, will con tinue current regiment Colon cancer screening no stool present, will call GI to schedule colonoscopy. Depression screening negative screen Pending Test Test Name Order Date XR GI SERIES 06/17/2024 Referrals Referral Date Details 06/17/2024 06/17/2024, SCREEN F OR COLON CANCER, Garry Campos Next Appt Details Provider Name:Ranjit Mayo ier, 06/12/2025 07:00:00 AM, [address], [address], [place], [place], [phone], Provider Name:Ranjit Mayo ier, 06/26/2025 09:30:00 AM, [address], [address], [facility], [phone], Progress Notes * Connie COTA PDOB:1975 (49 yo M)Acc No.[id number]:06/17/2024 Progress Notes Patient:?Connie Cota Provider:?Ranjit Xiao MD :1975???Age:49 Y???Sex:Male Scotty e:06/17/2024 [facility] Subjective: * Chief Complaints: * ???Annual visitNO Covid symp toms * HPI: ???Depression Screening:?PHQ-9?Little interest or pleasure in doing things?Not at all,?Feeling down, depressed, or hopeless?Not at all,?Trouble falling or staying asleep, or sleeping too much?Not at all,?Feeling tired or having little energy?Not at all,?Poor appetite or overeating?Not at all,?Feeling bad about yourself or that you are a failure, or have let yourself or your family down?Not at all,?Trouble concentrating on things, such as reading the newspaper or watching television?Not at all,?Moving or speaking so slowly that other people could have noticed; or the opposite, being so fidgety or restless that you have been moving around a lot more than usual?Not at all,?Thoughts that you would be better off or of hurting yourself in some way?Not at all,?Total Score?0.?Interpretation and Intervention?Depression Screening Findings?Negative,?Follow-Up for Depression?: review of PHQ-9 found negative result, no follow-up needed.?Communication Needs:?Communication Needs?Does the patient have a hearing impairment?No,?Does the patient have a vision impairment??Yes,?If yes, what is the vision impairment??Glasses,?Does the patient have a cognition impairment??No.?SDOH Questions:?SDOH Questions?In the past year have you been worried about losing housing??No,?In the past year have you or any family members you live with been unable to get any of the following when it was really needed? Check all that apply:?None.?Symptom(s):? patient is a 49yo male here for yearly visit with review of recent labs and follow up of chronic issues. * ROS:?General/Constitutional:?Patient denies?fatigue , headache.?Change in appetite?denies.?Chills?denies.?Fever?denies.?Ophthalmologic:?Blurred vision?denies.?Discharge?denies.?Pain?denies.?ENT:?Patient denies?decreased sense of smell , any loss of taste , sore throat.?Decreased hearing?denies.?Sore throat?denies.?Swollen glands?denies.?Endocrine:?Cold intolerance?denies.?Excessive thirst?denies.?Heat intolerance?denies.?Weight loss?denies.?Respiratory:?Cough?denies.?Shortness of breath at rest?denies.?Shortness of breath with exertion?denies.?Wheezing?denies.?Cardiovascular:?Chest pain at rest?denies.?Chest pain with exertion?denies.?Irregular heartbeat?denies.?Shortness of breath?denies.?Gastrointestinal:?Patient complaining of?food getting stuck un throat.?Abdominal pain?denies.?Change in bowel habits?denies.?Diarrhea?denies.?Nausea?denies.?Rectal bleeding?denies.?Vomiting?denies .?Genitourinary:?Blood in urine?denies.?Difficulty urinating?denies.?Frequent urination?denies.?Musculoskeletal:?Patient denies?muscle aches.?Painful joints?denies.?Weakness?denies.?Peripheral Vascular:?Patient denies?red and blue toes.?Skin:?Comments?has a lesion on chest for 8 months.?Dry skin?denies.?Itching?denies.?Denies?Mole(s),? changes in moles, new moles or any lesions of concern.?Denies?Photosensitivity.?Rash?denies.?Neurologic:?Dizziness?denies.?Fainting?denies.?Headache?denies.? * Medical History:? * Surgical History:? * Hospitalization/Major Diagno stic Procedure:? * Family History:?Father: dece ased 66 yrs, diagnosed with COPD.?Mother: alive 70 yrs.?1 brother(s) . 2 son(s) . .? No pertinent family medical history, Denies mental health/substance abuse family history Father was an alcoholic, No pertinent family medical history,. * Social History:?Tobacco Use:?Tobacco Use/Smoking?Patient is a?nonsmoker,?Additional Findings: Tobacco Non-User?Current non-smoker, currently using no form of tobacco.?Drugs/Alcohol:?Alcohol Screen?Did you have a drink containing alcohol in the past year??Yes,?How often did you have a drink containing alcohol in the past year??2 to 4 times a month (2 points),?How many drinks did you have on a typical day when you were drinking in the past year??1 or 2 drinks (0 point),?How often did you have 6 or more drinks on one occasion in the past year??Never (0 point),?Points?2,?Interpretation?Negative.?Miscellaneous:?Caffeine: yes, frequency: 1 cup per day. Children: yes. 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 Exercise: yes, push ups and sit iups daily. Housing: owning. Living with: spouse and children. Marital status: . Occupation: works full-time. Pets: dog x1 cat x1. no Travel outside of the [place]. * Medications:?TakingLevothyro xine Sodium 200 MCG Tablet TAKE 1 TABLET BY MOUTH EVERY DAY IN THE MORNING ON AN EMPTY STOMACH Taking Levothyroxine Sodium 200 MCG Tablet TAKE 1 TABLET BY MOUTH EVERY DAY IN THE MORNING ON AN EMPTY STOMACH Not-Taking/PRNFlonase 50 MCG/ACT Suspension 1 spray in each nostril Nasally Once a dayMedication List reviewed and reconciled with the patientNot-Taking/PRN Flonase 50 MCG/ACT Suspension 1 spray in each nostril Nasally Once a dayMedication List reviewed and reconciled with the patient * Allergies:?N.K.D.A.yes[Aller gies Verified] Objective: * Vitals:?Ht: 74, Wt:201, BMI: 25.80, BP:122/74 weight is down 9 pounds since 03-14-24. * ???Past Orders: ???Lab:Lipid Panel (Order Da te 03/10/2024) (Collection Date - 03/10/2024) ? Value Reference Range ?Triglycerides 61 <150 - mg/dL ?Cholesterol 173 <200 - m g/dL ?LDL Cholesterol Calculated 106 H <100 - mg/dL ?HDL Cholesterol 55 >40 - mg/dL ???Lab:TSH reflex Free T4 (O rder Date - 03/10/2024) (Collection Date - 03/10/2024) ? Value Reference Range ?TSH reflex Free T4 0.31 L 0 .32-4.0 - uIU/mL ???Lab:UA ClnCatch+Micro w/r flx Cult (Order Date - 03/10/2024) (Collection Date - 03/10/2024) ? Value Reference Range ?Color Urine Yellow - ?Appearance Urine Clear - ?PH 6.5 5.0-9.0 - ?Glucose Urine UA Negative Neg ative - mg/dL ?Urine Blood Negative Negative - ?Specific [place] - Urine 1.020 1.005-1.025 - ?Urine Protein Trace Neg-Tr latoya - mg/dL ?Urine Ketones Negative Negati ve - mg/dL ?Nitrite Urine Negative Negati ve - ?Leukocyte Esterase Urine Negative Negative - ?RBC Urine 0-2 0-2 - /HPF ?WBC Urine 0-5 0-5 - /HPF ?Squamous Epithelial Cell Urine 0-2 0-2 - /HPF ?Bacteria Urine None Seen None Seen - ?Hyaline Casts Urine 0-2 0-2 - /LPF ???Lab:Free T4 (Free Thyroxi ne) (Order Date - 03/10/2024) (Collection Date - 03/10/2024) ? Value Reference Range ?Free T4 (Free Thyroxine) 1.14 0.71-1.85 - ng/dL ???Lab:Complete Blood Count Auto Diff (Order Date - 03/10/2024) (Collection Date - 03/10/2024) ? Value Reference Range ?White Blood Count 5.3 4. 8-10.8 - X10*3/uL ?Red Blood Count 4.97 4.60 -5.80 - X10*6/uL ?Hemoglobin 15.9 14.0-18.0 - g/dl ?Hematocrit 46.3 42.0-52.0 - % ?Mean Corpuscular Volume 93.2 80.0-98.0 - fL ?Mean Corpuscular Hemoglobin 32.0 27.0-33.0 - pg ?Mean Corpuscular HGB Conc 34.3 31.0-36.0 - g/dl ?Red Cell Distribution Width 12.5 11.0-16.0 - % ?Platelet Count 201 160-4 00 - X10*3/uL ?Mean Platelet Volume 10.8 9.4-12.4 - fL ?Neutrophils Percent Auto 62.0 45-73 - % ?Imm Gran Pct Auto 0.4 0. 0-0.4 - % ?Lymphocytes Percent Auto 23.5 20-40 - % ?Monocytes Percent Auto 9.8 2-11 - % ?Eosinophils Percent Auto 3.0 0-4 - % ?Basophils Percent Auto 1.3 0-2 - % ?NRBC Pct Auto 0.0 0.0-0. 2 - /100WBC ?Neutrophils Absolute Auto 3.3 2.0-8.3 - x10*3/uL ?Imm Gran Abs Auto 0.02 0. 00-0.03 - X10*3/uL ?Lymphocytes Absolute Auto 1.2 1.2-4.9 - X10*3/uL ?Monocytes Absolute Auto 0.5 0.1-1.2 - X10*3/uL ?Eosinophils Absolute Auto 0.2 0.0-0.4 - X10*3/uL ?Basophils Absolute Auto 0.1 0.0-0.2 - X10*3/uL ?NRBC Abs Auto 0.000 0.0-0. 012 - X10*3/uL ???Lab:Comprehensive [place]. P renato Fast (Order Date - 03/10/2024) (Collection Date - 03/10/2024) ? Value Reference Range ?Sodium 142 135-145 - mmo l/L ?Bilirubin Total 0.5 0.0- 1.0 - mg/dL ?Aspartate Amino Transferase 23 5-37 - U/L ?Alanine Aminotransferase 21 0-40 - U/L ?Total Protein 6.8 6.5-8. 0 - g/dL ?Albumin Level 4.3 3.5-5. 0 - g/dL ?Alkaline Phosphatase 76 39-117 - U/L ?Potassium 4.7 3.3-5.1 - mmol/L ?Chloride 106 96-108 - mm ol/L ?Carbon Dioxide 31 H 22-29 - mmol/L ?Anion Gap 10 L 12-20 - ?Blood Urea Nitrogen 10 9-16 - mg/dL ?Creatinine 1.13 0.5-1.4 - mg/dL ?Estimated Glomerular Filt Rate > 60 - ?Glucose Fasting 98 60-9 9 - mg/dL ?Calcium 9.6 8.4-10.2 - m g/dL * Examination: ???General Examination: ?GENERAL APPEARANCE:?well developed, well nourished, in no acute distress.?HEAD:?normocephalic, atraumatic.?EYES:?pupils equal, round, reactive to light and accommodation, sclera non-icteric.?EARS:?normal.?ORAL CAVITY:?mucosa moist.?THROAT:?clear.?NECK/THYROID:?neck supple, full range of motion, no cervical lymphadenopathy, no bruits.?SKIN:?warm and dry, , abnormal with a scab lesion 1/2 in on chest.?HEART:?regular rate and rhythm, S1, S2 normal, no murmurs.?LUNGS:?clear to auscultation bilaterally.?ABDOMEN:?soft, nontender, nondistended, bowel sounds present, normal, no organomegaly , no masses palpable.?RECTAL EXAM:?normal tone, no external hemorrhoids, no masses palpable, prostate normal no stool.?MALE GENITOURINARY:?circumcised, no testicular mass, testes descended bilaterally.?EXTREMITIES:?no clubbing, cyanosis, or edema.?NEUROLOGIC:?nonfocal, motor strength normal upper and lower extremities, sensory exam intact.? Assessment: * Assessment: 1.?Annual physical exam - Z0 0.00 (Primary)?2.?Esophageal dysphagia - R13.19?3.?Skin lesion - L98.9?4.?Acquired hypothyroidism - E03.9?5.?Colon cancer screening - Z12.11?6.?Depression screening - Z13.31? Plan: * Treatment: Notes: labs reviewed and discussed with patient, referral to dr campos for colonoscopy/ REFFERAL TO BE FAXED WHEN NOTE LOCKED.??2.?Esophageal dysphagia?Imaging: XR GI SERIES* Abigail Henriquez 024 09:15:05 AM EDT > SCHEDULED FOR 08/25/24 @ 930AM Notes: pending diagnostic testing, [place] [facility] SCHEDULED FOR 08/25/24 @ 9:30AM .PATIENT INFORMED.??3.?Skin lesion? Notes: referral to dermatology/ ALL INFO GIVEN TO CONNIE FOR [facility].??4.?Acquired hypothyroidism? Refill Levothyroxine Sodium Tablet, 200 MCG, take 1 tablet by mouth every day in the morning on an empty stomach, Orally, Once a day, 90 days, 90, Refills 4.?? Notes: stable, will continue current regiment.??5.?Colon cancer screening? Notes: no stool present, will call GI to schedule colonoscopy.??6.?Depression screening? Notes: negative screen.??7.?Others? Referral To:Garry Campos??Gastroenterology ?Reason:SCREEN FOR COLON CANCER * Procedure Codes:?65239 VENIP UNCT, ROUTINE* * Preventive Medicine:? ??Counseling:?Care goal follow-up plan:?Counseling for abnormal BMI provided?Yes,?Above Normal BMI Follow-up?Giving encouragement to exercise.? * * Sign off status: Completed true * Provider:?Ranjit Xiao MD Date:?0 06/17/2024 Generated for Manish winter/Beck/Brian on:?01/20/2025 07:04 PM EST History and Physical Notes * HPI (History of Present Illness) Category Sub-Category Detail Notes Category Not es Symptom(s) patient is a 49 yo male here for yearly visit with review of recent labs and follow up of chronic issues. Depression Screening PHQ-9 Little inte rest or pleasure in doing things: Not at all Feeling down, depressed, or hopeless: No t at all Trouble falling or staying asleep, or sl eeping too much: Not at all Feeling tired or having little energy: N ot at all Poor appetite or overeating: Not at all Feeling bad about yourself o r that you are a failure, or have let yourself or your family down: Not at all Trouble concentrating on thi ngs, such as reading the newspaper or watching television: Not at all Moving or speaking so slowly that other people could have noticed; or the opposite, being so fidgety or restless that you have been moving around a lot more than usual: Not at all Thoughts that you would be b megan off or of hurting yourself in some way: Not at all Total Score: 0 Interpretation and Intervention Depression Veronica nicholas Findings: Negative Follow-Up for Depression: : review of PH Q-9 found negative result, no follow-up needed SDOH Questions SDOH Questions In the past year have you been worried about losing housing?: No In the past year have you or any family members you live with been unable to get any of the following when it was really needed? Check all that apply:: None Communication Needs Communication Needs Does the patient have a hearing impairment: No Does the patient have a vision impairmen t?: Yes ?If yes, what is the vision impairment?: Glasses Does the patient have a cognition impair ment?: No Examination Category Sub-Category Detail Notes Category Not es General Examination GENERAL APPEARANCE: well dev eloped, well nourished, in no acute distress HEAD: normocephalic, atrau matic EYES: pupils equal, round, reactive to light and accommodation, sclera non- icteric EARS: normal THROAT: clear NECK/THYROID: neck supple, full ra nge of motion, no cervical lymphadenopathy, no bruits HEART: regular rate and rhy thm, S1, S2 normal, no murmurs LUNGS: clear to auscultatio n bilaterally ABDOMEN: soft, nontender, non distended, bowel sounds present, normal, no organomegaly , no masses palpable NEUROLOGIC: nonfocal, motor stre ngth normal upper and lower extremities, sensory exam intact SKIN: warm and dry, , abno rmal with a scab lesion 1/2 in on chest EXTREMITIES: no clubbing, cyanosi s, or edema MALE GENITOURINARY: circumcised, no test icular mass, testes descended bilaterally RECTAL EXAM: normal tone, no exte rnal hemorrhoids, no masses palpable, prostate normal no stool ORAL CAVITY: mucosa moist Consultation Request Notes Referral Date Referring Provider Referred Provider Not es 06/17/2024 Ranjit Xiao Robert SCREEN FOR COLON CANCER
--- OUTSIDE RECORDS SUMMARY | 2025-01-20 19:05 | XMS_ITS ---
Author Organization [facility] Address [address] [place] [phone] Care Team Providers Care Ticket Broker Name Role Phone Ninoska VO, Ranjit Primary Care Provider Garry Navas [phone] REASON FOR VISIT dysphagia,screening Encounters Encounter Location Date Provider Diagnosis [facility] Outpatient [address] [place] [phone] 01/20/2025 Garry Jeff Plan Of Treatment No Information Progress Notes * CONNIE COTADOB:1975 ( 49 yo M)Acc No.[id number]:01/20/2025 EGD&COL/MAC Patient:?CIPRIANO CONNIE Provider:?Garry Jeff MD :1975???Age:49 Y???Sex:Male Scotty e:01/20/2025 Address:[address] [place], [place] [phone] Pcp:Ranjit Xiao MD Subjective: * Chief Complaints: * ???1. Dysphagia,screening. * Medical History:? Objective: * Vitals:? Assessment: Plan: * Treatment: * * The named appointment provid er may or may not be the originator of this progress note, and it is not deemed complete until electronically signed by the appointment provider. Sign off status: Pending * Provider:?Garry Jeff MD Date:? 025 Generated for Manish winter/Beck/eTransmitting on:?01/20/2025 07:04 PM EST
--- OUTSIDE RECORDS SUMMARY | 2025-01-20 19:05 | XMS_ITS ---
Author Organization Ranjit Xiao MD Address [address] [place] [phone] Care Team Providers Care Hang Gliding Instructor Name Role Phone Ranjit Xiao Primary Care Provider [phone] Encounters Encounter Location Date Provider Diagnosis Ranjit Xiao MD [address] [facility] [address] [place] [phone] 01/20/2025 Ranjit Xiao Plan Of Treatment Next Appt Details Provider Name:Ranjit Mayo iezuleika, 06/12/2025 07:00:00 AM, [address] [place] [address], Suite [facility], [place], [place], [phone], Provider Name:Ranjit anna, 06/26/2025 09:30:00 AM, [address] [place] [address], Suite [facility], [place], [place], [phone], Progress Notes * Dwight COTA PDOB:1975 (49 yo M)Acc No.[id number]:01/20/2025 Patient:?Dwight COTA :1975???Age:49 Y???Sex:Male [address] [place] [address] * * Date:?
--- OUTSIDE RECORDS SUMMARY | 2025-01-20 19:05 | XMS_ITS | Patient Health Record ---
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 Role Phone Ranjit Xiao Primary Care Provider Allergies No Known Allergies Results Component Value Reference Range Notes Complete Blood Count Auto Di ff Reviewed date:03/10/2024 05:43:13 PM Interpretation: Performing Lab:[facility], [address] [place] [phone] Notes/Report: White Blood Count 5.3 4.8-10.8 X10*3/uL Red Blood Count 4.97 4.60-5.80 X10*6/uL Hemoglobin 15.9 14.0-18.0 g/dl Hematocrit 46.3 42.0-52.0 % Mean Corpuscular Volume 93.2 80.0-98.0 fL Mean Corpuscular Hemoglobin 32.0 27.0-33.0 pg Mean Corpuscular HGB Conc 34.3 31.0-36.0 g/dl Red Cell Distribution Width 12.5 11.0-16.0 % Platelet Count 201 160-400 X10*3/uL Mean Platelet Volume 10.8 9.4-12.4 fL Neutrophils Percent Auto 62.0 45-73 % Imm Gran Pct Auto 0.4 0.0-0.4 % Lymphocytes Percent Auto 23.5 20-40 % Monocytes Percent Auto 9.8 2-11 % Eosinophils Percent Auto 3.0 0-4 % Basophils Percent Auto 1.3 0-2 % NRBC Pct Auto 0.0 0.0-0.2 /100WBC Neutrophils Absolute Auto 3.3 2.0-8.3 x10*3/u L Imm Gran Abs Auto 0.02 0.00-0.03 X10*3/uL Lymphocytes Absolute Auto 1.2 1.2-4.9 X10*3/u L Monocytes Absolute Auto 0.5 0.1-1.2 X10*3/uL Eosinophils Absolute Auto 0.2 0.0-0.4 X10*3/u L Basophils Absolute Auto 0.1 0.0-0.2 X10*3/uL NRBC Abs Auto 0.000 0.0-0.012 X10*3/uL Comprehensive [place]. Panel Fa Reviewed date:03/10/2024 12:27:41 PM Interpretation: Performing Lab:[facility], [address] [place] [phone] Notes/Report: Sodium 142 135-145 mmol/L Potassium 4.7 3.3-5.1 mmol/L Chloride 106 96-108 mmol/L Carbon Dioxide 31 22-29 mmol/L Anion Gap 10 12-20 Blood Urea Nitrogen 10 9-16 mg/dL Creatinine 1.13 0.5-1.4 mg/dL Estimated Glomerular Filt Rate > 60 NOTE: For -Omani individuals, multiply the result by 1.210. Chronic Kidney Disease: Estimated GFR < 60 mL/min/1.73m2 Severe Kidney Disease: Estimated GFR < 15 mL/min/1.73m2 Glucose Fasting 98 60-99 mg/dL Calcium 9.6 8.4-10.2 mg/dL Bilirubin Total 0.5 0.0-1.0 mg/dL Aspartate Amino Transferase 23 5-37 U/L Alanine Aminotransferase 21 0-40 U/L Total Protein 6.8 6.5-8.0 g/dL Albumin Level 4.3 3.5-5.0 g/dL Alkaline Phosphatase 76 39-117 U/L Lipid Panel Reviewed date:03/10/2024 12:28:07 PM Interpretation: Performing Lab:[facility], [address] [place] [phone] Notes/Report: Triglycerides 61 <150 mg/dL Desirable Triglyceride: less than 150 mg/dL Borderline High Triglyceride 150-199 mg/dL High Triglyceride: 200-499 mg/dL Very High Triglyceride: greater than or equal to 5OO mg/dL Cholesterol 173 <200 mg/dL Desirable Cholesterol: less than 200 mg/dL Borderline High Cholesterol: 200-239 mg/dL High Cholesterol: greater than 239 mg/dL LDL Cholesterol Calculated 106 <100 mg/dL Desirable LDL: less than 100 mg/dL Near Optimal/Above Optimal LDL: 110-129 mg/dL Borderline High LDL: 130-159 mg/dL High LDL: 160-189 mg/dL Very High LDL: greater than or equal to 190 mg/dL HDL Cholesterol 55 >40 mg/dL Desirable HDL: greater than 40 mg/dL Note: This HDL assay may give artificially low results in patients with liver disease. PSA,Total (Free>4and<10) Reviewed date:03/14/2024 12:10:55 PM Interpretation:JASSICK 03/14 PSA Performing Lab:[address] [phone] Notes/Report: PSA,Total (Free>4and<10) 4.11 0.00-4.00 ng/mL PSA methodology: Jimenez Alinity i Chemiluminescent Microparticle Immunoassay (CMIA) TSH reflex Free T4 Reviewed date:03/10/2024 12:27:49 PM Interpretation: Performing Lab:[facility], [address] [place] [phone] Notes/Report: TSH reflex Free T4 0.31 0.32-4.0 uIU/mL UA ClnCatch+Micro w/rflx Cul t Reviewed date:03/10/2024 05:41:56 PM Interpretation: Performing Lab:[facility], [address] [place] [phone] Notes/Report: Urine, Clean Catch Color Urine Yellow Appearance Urine Clear PH 6.5 5.0-9.0 Glucose Urine UA Negative Negative mg/dL Urine Blood Negative Negative Specific [place] - Urine 1.020 1.005-1.025 Urine Protein Trace Neg-Trace mg/dL Urine Ketones Negative Negative mg/dL Nitrite Urine Negative Negative Leukocyte Esterase Urine Negative Negative RBC Urine 0-2 0-2 /HPF WBC Urine 0-5 0-5 /HPF Squamous Epithelial Cell Urine 0-2 0-2 /HPF Bacteria Urine None Seen None Seen Hyaline Casts Urine 0-2 0-2 /LPF PSA,Total (Free>4and<10) Reviewed date:03/14/2024 03:05:27 PM Interpretation: Performing Lab:[facility], [address] [place] [phone] Notes/Report: PSA,Total (Free>4and<10) 3.07 0.00-4.00 ng/mL A Free PSA was not performed: The percentage of Free PSA can be used to enhance the differentiation of prostate cancer from benign prostatic disease in subjects whose PSA levels are between 4.0 and 10.0 ng/mL. For subjects whose PSA levels are below 4.0 or above 10.0 ng/mL, the risk of prostate cancer is determined on the basis of the PSA alone. Therefore the % Free PSA is recommended only for those subjects whose PSA levels are between 4.0 and 10.0 ng/mL. PSA methodology: Jimenez Alinity i Chemiluminescent Microparticle Immunoassay (CMIA) Testosterone, Free/Total Reviewed date:06/27/2024 08:12:04 AM Interpretation: Performing Lab:[facility], [address] [place] [phone] Notes/Report: Testosterone, Total 298 568-4306 ng/dL For additional information, please refer to http://education.Pixtr.com/faq/ TotalTestosteroneLCMSMSFAQ 165 (This link is being provided for informational/ educational purposes only.) This test was developed and its analytical performance characteristics have been determined by [facility] [place], [place]. It has not been cleared or approved by the U.S. Food and Drug Administration. This assay has been validated pursuant to the CLIA regulations and is used for clinical purposes. Testosterone, Free 78.4 35.0-155.0 pg/mL This test was developed and its analytical performance characteristics have been determined by [facility] [place], [place]. It has not been cleared or approved by the U.S. Food and Drug Administration. This assay has been validated pursuant to the CLIA regulations and is used for clinical purposes. THIS TEST WAS PERFORMED AT: [facility] [id number] [place] [phone] CONCHITA URIBE MD,PHD PSA Free and Total Reviewed date:03/11/2024 07:39:03 PM Interpretation: Performing Lab:[address], [place] [address] Notes/Report: Prostate Specific Ag Total 3.9 < OR = 4.0 ng/ mL Percent Free Prostate Spec Ag 8 >25 % (calc ) PSA(ng/mL) Free PSA(%) Estimated(x) Probability of Cancer(as%) 0-2.5 (*) Approx. 1 2.6-4.0(1) 0-27(2) 24(3) 4.1-10(4) 0-10 56 11-15 28 16-20 20 21-25 16 >or =26 8 >10(+) N/A >50 References:(1)Benjamin et al.:Urology 60: 469-474 (2001) (2)Benjamin et al.:J.Urol 168: 922-925 (2001) Free PSA(%) Sensitivity(%) Specificity(%) < or = 25 85 19 < or = 30 93 9 (3)Catalona et al.:JASON 277: 8504-0732 (1996) (4)Catalona et al.:JASON 279: 0947-5192 (1997) (x)These estimates vary with age, ethnicity, family history and CHRISTIAN results. (*)The diagnostic usefulness of % Free PSA has not been established in patients with total PSA below 2.6 ng/mL (+)In men with PSA above 10 ng/mL, prostate cancer risk is determined by total PSA alone. The Total PSA value from this assay system is standardized against the equimolar PSA standard. The test result will be approximately 20% higher when compared to the WHO-standardized Total PSA (Siemens assay). Comparison of serial PSA results should be interpreted with this fact in mind. PSA was performed using the [employer] Immunoassay method. Values obtained from different assay methods cannot be used interchangeably. PSA levels, regardless of value, should not be interpreted as absolute evidence of the presence or absence of disease. THIS TEST WAS PERFORMED AT: [facility] [address] [place] [phone] DANNY BAH MD Free Prostate Spec Ag 0.3 Free T4 (Free Thyroxine) Reviewed date:03/10/2024 12:27:25 PM Interpretation: Performing Lab:[facility], [address] [place] [phone] Notes/Report: Free T4 (Free Thyroxine) 1.14 0.71-1.85 ng/dL Hold Gold Reviewed date:03/14/2024 01:47:27 PM Interpretation: Performing Lab:[facility], [address] [place] [phone] Notes/Report: Perry Gold See Note Specimen held untested for 24 hours; Call to request Chemistry testing. Prothrombin Time INR (Not ye t reviewed by provider) Interpretation: Performing Lab:[facility], [address] [place] [phone] Notes/Report: Prothrombin Time 11.5 10.9-12.4 SEC INTERNATIONAL NORM RATIO 1.0 0.9-1.1 INTERNATIONAL NORMALIZED RATIO (INR) REFERENCE RANGES Reference Range For patients not on anticoagulant therapy: 0.9 - 1.1 INR ranges for oral anticoagulant therapy: For prevention and treatment of venous thrombosis and pulmonary embolism: 2.0 - 3.0 For acute myocardial infarction with aspirin therapy: 2.0 - 3.0 For acute myocardial infarction without aspirin therapy: 3.0 - 4.0 For patients with mechanical prosthetic heart valves: 2.5 - 3.5 Comprehensive Met. Panel (No t yet reviewed by provider) Interpretation: Performing Lab:[address] [phone] Notes/Report: Sodium 142 135-145 mmol/L Potassium 4.2 3.3-5.1 mmol/L Chloride 105 96-108 mmol/L Carbon Dioxide 23 22-29 mmol/L Anion Gap 18 12-20 Blood Urea Nitrogen 12 9-16 mg/dL Creatinine 1.30 0.5-1.4 mg/dL Creatinine Clr Calc Pharmacy 79.0 eGFR (calculated from the MDRD study equation) and eCrCl (calculated from the Cockcroft-Gault equation) are based on different parameters and may not yield comparable results. If eCrCl result is absurd, please check patient's height/weight. Estimated Glomerular Filt Rate 58 Chronic Kidney Disease: Estimated GFR < 60 mL/min/1.73m2 Severe Kidney Disease: Estimated GFR < 15 mL/min/1.73m2 Glucose Random 204 60-115 mg/dL Calcium 10.7 8.4-10.2 mg/dL Bilirubin Total 0.9 0.0-1.0 mg/dL Aspartate Amino Transferase 27 5-37 U/L Alanine Aminotransferase 29 0-40 U/L Total Protein 7.7 6.5-8.0 g/dL Albumin Level 4.7 3.5-5.0 g/dL Alkaline Phosphatase 78 39-117 U/L Lactic Acid (Not yet reviewe d by provider) Interpretation: Performing Lab:[facility], [address] [place] [phone] Notes/Report: Lactic Acid 1.9 0.5-2.0 mmol/L Magnesium (Not yet reviewed by provider) Interpretation: Performing Lab:[facility], [address] [place] [phone] Notes/Report: Magnesium 1.6 1.6-2.6 mg/dL Reason For Referral Reason SCREEN FOR COLON CAN CER Diagnosis 1 Screen for colon can cer (Z12.11) Referral Organization Ranjit Xiao MD Referring Provider First Name Ranjit Referring Provider Last Name Ninoska Referring Provider Speciality Internal M edicine Referred Provider Garry Campos Referred Provider Specialty Gastroentero logy General Notes Abigail Henriquez 06/21/2024 11:26:14 AM EDT > REFERRAL FAXED 06/17/24Martinez Patti A 11/04/2024 11:36:10 AM EST > PER USAMA ROSALES KEPT APPT AND IS SCHEDULED FOR , LOWER JANUARY 20 FAX NOTE WHEN LOCKEDMartinez Patti A 11/18/2024 07:59:58 AM EST > OFFICE NOTE RECD Referral Priority Routine Referral Appointment Date 10/21/2024 Medications Medication SIG (Take, Route, Frequency, Duration) Notes Start Date End Date Status Levothyroxine Sodium 200 MCG take 1 tablet by mouth every day in the morning on an empty stomach Orally Once a day for 90 days Active Flonase 50 MCG/ACT 1 spray in each nostril Nasally Once a day for 30 day(s) 03/13/2014 Not-Taking Immunizations Vaccine Route Administration Date Status Comme nts Flu Vaccine IM Intramuscular 08/20/2015 Administered Fluarix Quadrivalent IM Intramuscular 08/07/2016 Administe red Fluarix Quadrivalent IM Intramuscular 08/09/2018 Administe red Fluarix Quadrivalent IM Intramuscular 08/10/2020 Administe red SARS-COV-2 Pfizer Unknown 04/26/2021 Administered SARS-COV-2 Pfizer Unknown 03/20/2021 Administered Fluarix Quadrivalent IM Intramuscular 09/08/2022 Administe red Fluarix Quadrivalent IM Intramuscular 09/07/2023 Administe red Social History Tobacco Use: Social History Observation [...] Never (0 point) Points 2 Interpretation Negative Problems Problem Type SNOMED Code ICD Code Onset Dates Problem Status W/U Status Risk Notes Problem 992300420 Acquired hypothyroidism (E03.9) Active confirmed Vital Signs Blood pressure diastolic 74 mm Hg 06/17/2024 yareli ght is down 9 pounds since 03-14-24 Height 74 in 06/17/2024 weight is down 9 pounds since 03-14-24 Blood pressure systolic 122 mm Hg 06/17/2024 weig ht is down 9 pounds since 03-14-24 Weight 201 lbs 06/17/2024 weight is down 9 pounds since 03-14-24 BMI 25.80 kg/m2 06/17/2024 weight is down 9 pounds since 03-14-24 Encounters Encounter Location Date Provider Diagnosis Ranjit Xiao MD [address] [place] [id number] 03/10/2024 Ranjit Xiao Blood tests for routine general physical examination Z00.00 and Acquired hypothyroidism E03.9 Ranjit Xiao MD [address] [place] [id number] 03/14/2024 Ranjit Xiao Elevated PSA R97.20 Ranjit Xiao MD [address] [place] [id number] 06/17/2024 Ranjit Xiao Annual physical exam Z00.00 ; Esophageal dysphagia R13.19 ; Skin lesion L98.9 ; Acquired hypothyroidism E03.9 ; Colon cancer screening Z12.11 and Depression screening Z13.31 Ranjit Xiao MD [address] [place] [id number] 01/20/2025 Ranjit Xiao MD [address] [place] [id number] 09/23/2024 Ranjit Xiao Assessments Encounter Date Diagnosis (ICD Code) Assessment Notes Treatment Notes Treatment Clinical Notes Section Notes 03/10/2024 Blood tests for routine general physical examination (ICD-10 - Z00.00) 03/10/2024 Acquired hypothyroidism (ICD-10 - E03.9) 03/14/2024 Elevated PSA (ICD-10 - R97.20) had a long discussion about the fact that psa's are frequently false positive and what we will do if it is still high. if it comes back high will refer to urlogy in [place], Total time spent on the date of the encounter is 35 minutes including both face to face time spent and time spent reviewing documentation, and counseling the patient. 06/17/2024 Annual physical exam (ICD-10 - Z00.00) labs reviewed and discussed with patient, referral to dr campos for colonoscopy/ REFFERAL TO BE FAXED WHEN NOTE LOCKED 06/17/2024 Esophageal dysphagia (ICD-10 - R13.19) pending diagnostic testing, THE ORDER WAS FAXED TO [facility] AND SCHEDULED FOR 08/25/24 @ 9:30AM .PATIENT INFORMED 06/17/2024 Skin lesion (ICD-10 - L98.9) referral to dermatology/ ALL INFO GIVEN TO CON[facility]IE FOR [facility] 06/17/2024 Acquired hypothyroidism (ICD-10 - E03.9) stable, will continue current regiment 06/17/2024 Colon cancer screening (ICD-10 - Z12.11) no stool present, will call GI to schedule colonoscopy. 06/17/2024 Depression screening (ICD-10 - Z13.31) negative screen Plan Of Treatment Pending Test Test Name Order Date Electrocardiogram (EKG) 08/07/2016 Electrocardiogram (EKG) 11/18/2018 ECHO EXAM OF HEART 05/17/2015 XR GI SERIES 06/17/2024 Prothrombin Time INR 01/20/2025 Comprehensive Met. Panel 01/20/2025 Lactic Acid 01/20/2025 Magnesium 01/20/2025 Next Appt Details Provider Name:Ranjit Mayo ier, 06/12/2025 07:00:00 AM, [address], [address], [place], [place], [phone], Provider Name:Ranjit Mayo ier, 06/26/2025 09:30:00 AM, [address], [address], [place], [place], [phone], Insurance Providers Payer Name Payer Address Payer Phone Subscriber Number Group Number Insured Name Patient Relationship to Insured Coverage Start Date Coverage End Date [facility] est [address] [place] [address] [id number] Connie Rae Self - patient is the insured [facility] [address] [address] [place] [address] [id number] Connie Rae Self - patient is the insured Medical (General) History Medical History History ICD Code Refuses flu shot
--- OUTSIDE RECORDS SUMMARY | 2025-01-20 19:05 | XMS_ITS ---
Author Organization Ranjit Xiao MD Address [address] [place] [phone] Care Team Providers Care Pharmacy Laboratory Technician Name Role Phone Ranjit Xiao Primary Care Provider REASON FOR VISIT GI series Encounters Encounter Location Date Provider Diagnosis Ranjit Xiao MD [address] [place], [place] [id number] 09/23/2024 Ranjit Xiao Plan Of Treatment Next Appt Details Provider Name:Ranjit Mayo ier, 06/12/2025 07:00:00 AM, [address] [place] [address], Suite [facility], [place], [place], [phone], Provider Name:Ranjit Mayo ier, 06/26/2025 09:30:00 AM, [address] [place] [address], Suite [facility], [place], [place], [phone], Progress Notes * Dwight COTA PDOB:1975 (49 yo M)Acc No.[id number]:09/23/2024 Patient:?Dwight Cota :1975???Age:49 Y???Sex:Male Address[address] [place] [address] * true * Date:? Generated for Printi maggy/Fajerrig/eTransmitting on:?01/20/2025 07:04 PM EST
[2025-01-20 19:07] LABS: Basophils Percent Auto 0.3 % (0-2); Eosinophils Percent Auto 0.1 % (0-4); Hematocrit 45.4 % (42.0-52.0); Hemoglobin 16.6 g/dl (14.0-18.0); Imm Gran Abs Auto 0.06 X10*3/uL (0.00-0.03); Imm Gran Pct Auto 0.4 % (0.0-0.4); Lymphocytes Absolute Auto 0.7 X10*3/uL (1.2-4.9); Lymphocytes Percent Auto 5.3 % (20-40); Mean Corpuscular HGB Conc 36.6 g/dl (31.0-36.0); Mean Corpuscular Hemoglobin 32.4 pg (27.0-33.0); Mean Corpuscular Volume 88.7 fL (80.0-98.0); Mean Platelet Volume 10.3 fL (9.4-12.4); Monocytes Absolute Auto 0.6 X10*3/uL (0.1-1.2); Monocytes Percent Auto 4.5 % (2-11); Neutrophils Absolute Auto 12.5 x10*3/uL (2.0-8.3); Neutrophils Percent Auto 89.4 % (45-73); Platelet Count 241 X10*3/uL (160-400); Red Blood Count 5.12 X10*6/uL (4.60-5.80); Red Cell Distribution Width 12.3 % (11.0-16.0)
[2025-01-20 19:19] LABS: Influenza A PCR NEGATIVE (Negative); Influenza B PCR NEGATIVE (Negative); Resp Syncy Virus RNA Qual PCR NEGATIVE (Negative); SARS COV2 PCR INHOUSE NEGATIVE (Negative)
[2025-01-20] MEDS: iohexoL 350 MG/ML 100 ML INFUS..BTL IV (19:29)
--- NOTE | 2025-01-20 21:33 | PC.NURSE ---
Dr Tomer serra bedside. Sciaruto made aware of scans and okay'd PO intake. pt tolerating applejuice and water without nausea or increase in pain. in room talking, laughing with patient. call coe in reach
[2025-01-20] MEDS: cefuroxime axetiL 500 MG TABLET PO (22:49)
== END 2025-01-20 22:54 | disposition home or self-care (01) ==
PROVIDERS: Physician Assistant Medical; Emergency Provider Emergency Medicine Emergency Medical Services; PCP Internal Medicine
DX: R68.83 Chills (without fever) (principal); R10.9 Unspecified abdominal pain; R11.2 Nausea with vomiting, unspecified; I10 Essential (primary) hypertension; I48.91 Unspecified atrial fibrillation; Z98.890 Other specified postprocedural states; Z03.818 Encounter for observation for suspected exposure to other biological agents ruled out
CPT/HCPCS: 0241U; 36415; 71260; 74177; 80053; 83605; 83735; 84484; 85025; 85610; 86850; 86900; 86901; 87040; 93005; 96365; 96375; 99284; 99285; J1171; J2405; J2543; Q9967

== ENCOUNTER → 2025-01-20 17:58 | Outpatient (BNV) | payer OTHER, SELFPAY | PROVIDERS: Emergency Provider Emergency Medicine Emergency Medical Services; PCP Internal Medicine; Visit Provider Internal Medicine Cardiovascular Disease | DX: R00.1 Bradycardia, unspecified (principal) | CPT/HCPCS: 93010 ==

== ENCOUNTER → 2025-01-20 18:07 | Outpatient (BNV) | payer OTHER, SELFPAY | PROVIDERS: Emergency Provider Emergency Medicine Emergency Medical Services; PCP Internal Medicine; Visit Provider Radiology Diagnostic Radiology | DX: A04.9 Bacterial intestinal infection, unspecified (principal); R91.1 Solitary pulmonary nodule | CPT/HCPCS: 71260; 74177 ==

== ENCOUNTER 2025-06-16 10:04 | Outpatient (REF) | payer OTHER, SELFPAY ==
--- OUTSIDE RECORDS SUMMARY | 2025-06-16 03:00 | XMS_ITS ---
Author Organization Ranjit Xiao MD Address [address] [place] [phone] Care Team Providers Care Student Life Vice President Name Role Phone Ranjit Xiao Primary Care Provider [phone] REASON FOR VISIT FASTING LABS Encounters Encounter Location Date Provider Diagnosis Ranjit Xiao MD [address] [place] [address] [place] [phone] 06/16/2025 Ranjit Xiao Blood tests for routine general physical examination Z00.00 and Acquired hypothyroidism E03.9 Assessments Encounter Date Diagnosis (ICD Code) Assessment Notes Treatment Notes Treatment Clinical Notes Section Notes 06/16/2025 Blood tests for routine general physical examination (ICD-10 - Z00.00) 06/16/2025 Acquired hypothyroidism (ICD-10 - E03.9) Plan Of Treatment Pending Test Test Name Order Date Complete Blood Count Auto Diff 5 Comprehensive [place]. Panel Fast 5 Lipid Panel 06/16/2025 TSH reflex Free T4 06/16/2025 UA ClnCatch+Micro w/rflx Cult 06/16/2025 Next Appt Details Provider Name:Ranjit Mayo ier, 06/26/2025 09:30:00 AM, [address], [address], [place], [place], [phone], Progress Notes * Dwight COTA PDOB:1975 (50 yo M)Acc No.[id number]:06/16/2025 Progress Note Patient: Dwight VIVEROS Provider: Carri Xiao MD :1975 A ge:50 Y S ex:Male Date:06/16/2025 [facility] Subjective: * Chief Complaints: * 1 . FASTING LABS. * Medical History: Objective: * Vitals: Assessment: * Assessment: 1. B lood tests for routine general physical examination - Z00.00 (Primary) 2 .?Acquired hypothyroidism - E03.9 Plan: * Treatment: 2. A cquired hypothyroidism L AB: Complete Blood Count Auto Diff L AB: Comprehensive [place]. Panel Fast L AB: Lipid Panel L AB: TSH reflex Free T4 L AB: UA ClnCatch+Micro w/rflx Cult * Procedure Codes: 3 6415 VENIPUNCT, ROUTINE* * * The named appointment provid er may or may not be the originator of this progress note, and it is not deemed complete until electronically signed by the appointment provider. Sign off status: Pending * Provider: Carri Xiao MD Date: 0 06/16/2025 Generated for Manish winter/Beck/Aaronitting on: 06/16/2025 10:14 AM EDT
[2025-06-16 10:07] LABS: MANUAL DIFF FLAG NO
--- OUTSIDE RECORDS SUMMARY | 2025-06-16 10:14 | XMS_ITS | Clinical Summary ---
Author Organization [facility] Address [address] [facility] [address] [place] [phone] Phone Care Team Providers Care Suction Plate Roller Hand Name Role Phone Ranjit Xiao MD Primary Care Provider Allergies No known active allergies Medications levothyroxine (LEVOXYL) 200 MCG tablet Take 200 mcg by mouth every morning. Active neomycin-polymyx in B-hydrocortisone (CORTOMYCIN) 3.5-10,000-1 mg/mL-unit/mL-% otic suspensionIndica tions:Acute otitis externa of left ear, unspecified type Place 3 drops into the right ear 4 (four) times a day. 10 mL Active Additional Information Patient not taking.Reported on 08/02/2023 Active Problems No known active problems Immunizations Immunization Administration Dates Next Due COVID-19 (Pre-09/07) Pfizer Vaccine, mRNA, PF 05/17/2021,04/26/2021,03/20/2021 Influenza Trivalent Preservative Free IM 08/10/ 020,08/09/2018,08/07/2016 Social History Tobacco Use Types Packs/Day Years Used Date Smoking Tobacco: Never Smokeless Tobacco: Never Alcohol Use Standard Drinks/Week Comments Yes 0 (1 standard drink = 0.6 oz pur e alcohol) occassionally Education Answer Date Recorded Are you interested in more education? Not on christiano e 03/13/2023 Are you concerned about learning? Not on file 03/13/2023 No 03/13/2023 No 03/13/2023 Digital Access Answer Date Recorded No 04/10/2023 No 04/10/2023 Reliable internet access at home? Not on file 04/10/2023 Device with a working camera? Not on file Sex and Gender Information Value Date Recorded Sex Assigned at Male 07/13/2021 9:34 AM EDT Legal Sex Male 9:30 PM EDT Gender Identity Male 07/13/2021 9:34 AM EDT Sexual Orientation Not on file Last Filed Vital Signs Vital Sign Reading Time Taken Comments Blood Pressure 147/94 08/02/2023 9:36 AM EDT Pulse 71 08/02/2023 9:36 AM EDT Temperature 36.3 C (97.4 F) 08/02/2023 9:36 AM EDT Respiratory Rate 20 08/02/2023 9:36 AM EDT Oxygen Saturation 97% 08/02/2023 9:36 AM EDT Inhaled Oxygen Concentration - - Weight 88.5 kg (195 lb) 08/02/2023 9:36 AM EDT Height 188 cm (6' 2 ) 08/02/2023 9:36 AM EDT Body Mass Index 25.04 08/02/2023 9:36 AM EDT Plan of Treatment Health Maintenance Due Date Last Done Comments Adult Td,Tdap Booster 1975 LIPID PANEL 1975 TSH LEVEL 1975 DEPRESSION SCREENING 1986 HEPATITIS C SCREENING 1992 HIV ONE-TIME SCREENING (18-6 5 YEARS) 1992 COLOGUARD 2019 COLONOSCOPY 2019 COLORECTAL CANCER SCREENING 2019 FIT TEST 2019 FOBT 2019 SIGMOIDOSCOPY 2019 VIRTUAL COLONOSCOPY 2019 PNEUMOCOCCAL VACCINES (50+ years) (1 of 1 - PCV) 2024 ZOSTER VACCINES (1 of 2) 2024 SCREENING FOR DIABETES 07/13/2024 07/13/2021 COVID-19 VACCINE (4 - 2023-2 5 season) 2024 05/17/2021, 04/26/2021, 03/20/2021 SMOKING STATUS SCREENING (On ce After 26 Yrs) Completed 08/02/2023 HEPATITIS A VACCINES Aged Out No long er eligible based on patient's age to complete this topic HIB VACCINES Aged Out No longer eligi ble based on patient's age to complete this topic MENINGOCOCCAL VACCINES (ACWY) Aged Out No longer eligible based on patient's age to complete this topic MENINGOCOCCAL VACCINES (B) Aged Out N o longer eligible based on patient's age to complete this topic Medical Devices Not on file Insurance [facility] OUT OF STATE PPO [facility] OUT [facility] OUT OF STATE PPO [facility] OUT [facility] [facility] OUT [facility] PPO [facility] OUT [facility] PPO [place] [facility] OUT OF STATE PPO [facility] OUT OF STATE PPO Care Teams Suction Plate Roller Hand Relationship Specialty Start Date End Date Ranjit Xiao MD [address] [place] [address] [place] [address] PCP - General Internal Medicine 01/01/19 Additional Source Comments The information contained in this document represents components of the legal health record. It is not the complete legal health record.[facility]
--- OUTSIDE RECORDS SUMMARY | 2025-06-16 10:14 | XMS_ITS | Patient Health Record ---
Author Organization [facility] Address [address] [place] [address] Care Team Providers Care Java Oracle Developer Name Role Phone Ranjit Xiao MD Primary Care Provider Garry Navas [phone] Allergies No Known Allergies Results Component Value Reference Range Notes Pathology (Not yet reviewed by provider) Interpretation: Performing Lab:[facility], [address] [place] [phone] Notes/Report: Reason For Referral No Information Medications Medication SIG (Take, Route, Frequency, Duration) Notes Start Date End Date Status Levothyroxine Sodium 200 MCG Oral for 90 Active Omeprazole 20 MG 1 capsule 1/2 to 1 h our before morning meal Orally Once a day for 90 days 01/29/2025 Active Social History Tobacco Use: Social History [...] Status Risk Notes Problem Colon cancer screening (944438463) Colon cancer screening (Z12.11) Active confirmed Problem Dysphagia (76810886) Dysphagia (R13.10) Active confirmed Vital Signs Blood pressure diastolic 00 mm Hg 10/21/2024 Height 6 ft 2 in in 10/21/2024 Blood pressure systolic 00 mm Hg 10/21/2024 Weight 187 lbs 10/21/2024 BMI 24.01 kg/m2 10/21/2024 Encounters Encounter Location Date Provider Diagnosis [facility] [address] [place], [place] [phone] 01/20/2025 Garry Jeff Colon cancer screeni ng Z12.11 ; Colon polyps K63.5 ; Diverticulosis of large intestine without perforation or abscess without bleeding K57.30 ; Dysphagia R13.10 ; Gastric ulcer K25.9 and Gastritis K29.70 [facility] [address] [place] [phone] 10/21/2024 Garry Jeff Dysphagia R13.10 and Colon cancer screening Z12.11 [facility] [address] [place] [phone] 06/09/2025 Garry Jeff [facility] [address] [place] [phone] 01/29/2025 Garry Jeff Assessments Encounter Date Diagnosis (ICD Code) Assessment Notes Treatment Notes Treatment Clinical Notes Section Notes 01/20/2025 Colon cancer screening (ICD-10 - Z12.11) 01/20/2025 Colon polyps (ICD-10 - K63.5) 10/21/2024 Colon cancer screening (ICD-10 - Z12.11) [...] to keep you advised of this progress. 01/20/2025 Diverticulosis of large intestine without perforation or abscess without bleeding (ICD-10 - K57.30) 01/20/2025 Dysphagia (ICD-10 - R13.10) 01/20/2025 Gastric ulcer (ICD-10 - K25.9) 01/20/2025 Gastritis (ICD-10 - K29.70) Plan Of Treatment Pending Test Test Name Order Date Pathology 01/20/2025 Future Test Test Name Order Date UPPER GI ENDOSCOPY BALLOOON DILATION OF ESOPH 10/21/2024 COLONOSCOPY 10/21/2024 Insurance Providers Payer Name Payer Address Payer Phone Subscriber Number Group Number Insured Name Patient Relationship to Insured Coverage Start Date Coverage End Date [facility] [id number] JONATHAN [place] [id number] CIPRIANO DWIGHT Self - patient is the insured Medical (General) History Medical History History ICD Code Hyperthyroidsim with subsequent hypothry 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
[2025-06-16 10:22] LABS: Appearance Urine Clear; Glucose Urine UA Negative (Negative); Hematocrit 43.5 % (42.0-52.0); Hemoglobin 15.0 g/dl (14.0-18.0); Imm Gran Abs Auto 0.01 X10*3/uL (0.00-0.03); Imm Gran Pct Auto 0.2 % (0.0-0.4); Lymphocytes Absolute Auto 1.6 X10*3/uL (1.2-4.9); Mean Corpuscular HGB Conc 34.5 g/dl (31.0-36.0); Mean Corpuscular Hemoglobin 31.5 pg (27.0-33.0); Mean Corpuscular Volume 91.4 fL (80.0-98.0); NRBC Abs Auto 0.000 X10*3/uL (0.0-0.012); NRBC Pct Auto 0.0 /100WBC (0.0-0.2); PH 6.0 (5.0-9.0); Platelet Count 214 X10*3/uL (160-400); Red Blood Count 4.76 X10*6/uL (4.60-5.80); Specific Gravity - Urine 1.025 (1.005-1.025); White Blood Count 5.3 X10*3/uL (4.8-10.8)
[2025-06-16 10:41] LABS: Alanine Aminotransferase 46 U/L (0-40); Albumin Level 4.6 g/dL (3.5-5.0); Alkaline Phosphatase 76 U/L (39-117); Anion Gap 12 (12-20); Aspartate Amino Transferase 39 U/L (5-37); Blood Urea Nitrogen 14 mg/dL (9-16); Calcium 9.3 mg/dL (8.4-10.2); Carbon Dioxide 29 mmol/L (22-29); Chloride 106 mmol/L (96-108); Cholesterol 199 mg/dL (<200); Estimated Glomerular Filt Rate > 60; HDL Cholesterol 45 mg/dL (>40); Potassium 4.4 mmol/L (3.3-5.1); Sodium 143 mmol/L (135-145); Total Protein 6.8 g/dL (6.5-8.0); Triglycerides 68 mg/dL (<150)
[2025-06-16 11:37] LABS: Free T4 (Free Thyroxine) 1.40 ng/dL (0.71-1.85)
== END 2025-06-16 10:05 | disposition home or self-care (01) ==
LOC: HO.LNP 10:04
PROVIDERS: Visit Provider Internal Medicine
DX: Z00.00 Encounter for general adult medical examination without abnormal findings (principal); E03.9 Hypothyroidism, unspecified
CPT/HCPCS: 80053; 80061; 81001; 84439; 84443; 85025

== ENCOUNTER 2025-08-08 13:12 | Outpatient (REF) | payer OTHER, SELFPAY ==
--- OUTSIDE RECORDS SUMMARY | 2025-01-20 08:30 | XMS_ITS ---
Author Organization [facility] Address [address] [place] [id number] Care Team Providers Care Technical Support Associate Name Role Phone Ranjit Xiao MD Primary Care Provider Garry Navas [phone] REASON FOR VISIT dysphagia,screening Encounters Encounter Location Date Provider [place] [facility] [address] [place] [id number] 01/20/2025 Garry Jeff Colon cancer scree cristopher Z12.11 ; Colon polyps K63.5 ; Diverticulosis of large intestine without perforation or abscess without bleeding K57.30 ; Dysphagia R13.10 ; Gastric ulcer K25.9 and Gastritis K29.70 Assessments Encounter Date Diagnosis (ICD Code) Assessment Notes Treatment Notes Treatment Clinical Notes Section Notes 01/20/2025 Colon cancer screening (ICD-10 - Z12.11) 01/20/2025 Colon polyps (ICD-10 - K63.5) 01/20/2025 Diverticulosis of large intestine without perforation or abscess without bleeding (ICD-10 - K57.30) 01/20/2025 Dysphagia (ICD-10 - R13.10) 01/20/2025 Gastric ulcer (ICD-10 - K25.9) 01/20/2025 Gastritis (ICD-10 - K29.70) Plan Of Treatment No Information Progress Notes * CONNIE COTADOB:1975 ( 50 yo M)Acc No.[id number]:01/20/2025 EGD and COL/MAC Patient: CONNIE VIVEROS Provider: Mariano Jeff MD :1975 A ge:49 Y S ex:Male Date:01/20/2025 [id number] Pcp:Ranjit Xiao MD Subjective: * Chief Complaints: * 1 . Dysphagia,screening. * Medical History: Objective: * Vitals: Assessment: * Assessment: 1. C olon cancer screening - Z12.11 (Primary) 2 . C olon polyps - K63.5? 3. D iverticulosis of large intestine without perforation or abscess without bleeding - K57.30 4 . D ysphagia - R13.10 5 . G astric ulcer - K25.9 6 . G astritis - K29.70 Plan: * Treatment: * Procedure Codes: 4 5385 LESION REMOVAL COLONOSCOPY, Modifiers: [place] , [address] ESOPH ENDOSCOPY, DILATION * * The named appointment provid er may or may not be the originator of this progress note, and it is not deemed complete until electronically signed by the appointment provider. Sign off status: Pending * Provider: Mariano Jeff MD Date: 0 01/20/2025 Generated for Manish winter/Beck/Aaronitting on: 0 08/08/2025 04:13 PM EDT
--- OUTSIDE RECORDS SUMMARY | 2025-06-09 09:20 | XMS_ITS ---
Author Organization [facility] Address [address] [place] [phone] Care Team Providers Care Freight Inspector Name Role Phone Ninoska VO, Ranjit Primary Care Provider Garry Navas [phone] REASON FOR VISIT Patient presents today for Dsouza's Esophagus,reflux Encounters Encounter Location Date Provider Diagnosis [facility] [address] [place] [phone] 06/09/2025 Garry Jeff Plan Of Treatment No Information Progress Notes * CONNIE COTADOB:1975 ( 50 yo M)Acc No.[id number]:06/09/2025 Progress Notes Patient: CONNIE VIVEROS Provider: Mariano Jeff MD :1975 A ge:50 Y S ex:Male Date:06/09/2025 Address:[address] [place], [place] [phone] Pcp:Ranjit Xiao MD Subjective: * Chief Complaints: * 1 . Patient presents today for Dsouza's Esophagus,reflux. * Medical History: Objective: * Vitals: Assessment: Plan: * Treatment: * * The named appointment provid er may or may not be the originator of this progress note, and it is not deemed complete until electronically signed by the appointment provider. Sign off status: Pending * Provider: Mariano Jeff MD Date: 06/09/2025 Generated for Bradeni maggy/Fagus/eTransmitting on: 0 08/08/2025 04:14 PM EDT
--- OUTSIDE RECORDS SUMMARY | 2025-06-11 17:51 | XMS_ITS ---
Author Organization Ranjit Xiao MD Address [address] [place] [phone] Care Team Providers Care Insurance Clerk Name Role Phone Ranjit Xiao Primary Care Provider REASON FOR VISIT Dwight Cota Encounters Encounter Location Date Provider Diagnosis Ranjit Xiao MD [facility] [address] [place] [phone] 06/11/2025 Ranjit Xiao Plan Of Treatment Next Appt Details Provider Name:Ranjit Mayo ier, 02/05/2026 08:00:00 AM, [address] [place] [address], [address], [phone], Provider Name:Ranjit Mayo ier, 08/02/2026 06:45:00 AM, [address] [place] [address], [address], [phone], Provider Name:Ranjit Mayo ier, 08/09/2026 02:30:00 PM, [address] [place] [address], [address] [place] [address], [phone], Progress Notes * Dwight COTA PDOB:1975 (50 yo M)Acc No.[id number]:06/11/2025 Patient: Dwight VIVEROS :1975 A ge:50 Y S ex:Male Address:[address] [place] [address] * true * Date: Generated for Printi ng/Faxing/eTransmitting on: 0 08/08/2025 04:14 PM EDT
--- OUTSIDE RECORDS SUMMARY | 2025-06-16 03:00 | XMS_ITS ---
Author Organization Ranjit Xiao MD Address [address] [place], [place] [phone] Care Team Providers Care Fruit Packer Name Role Phone Ranjit Xiao Primary Care Provider Results Component Value Reference Range Notes Complete Blood Count Auto Di ff Reviewed date:06/16/2025 12:36:15 PM Interpretation: Performing Lab:[facility], [address] [place] [phone] Notes/Report: White Blood Count 5.3 4.8-10.8 X10*3/uL Red Blood Count 4.76 4.60-5.80 X10*6/uL Hemoglobin 15.0 14.0-18.0 g/dl Hematocrit 43.5 42.0-52.0 % Mean Corpuscular Volume 91.4 80.0-98.0 fL Mean Corpuscular Hemoglobin 31.5 27.0-33.0 pg Mean Corpuscular HGB Conc 34.5 31.0-36.0 g/dl Red Cell Distribution Width 12.9 11.0-16.0 % Platelet Count 214 160-400 X10*3/uL Mean Platelet Volume 10.3 9.4-12.4 fL Neutrophils Percent Auto 56.2 45-73 % Imm Gran Pct Auto 0.2 0.0-0.4 % Lymphocytes Percent Auto 29.4 20-40 % Monocytes Percent Auto 11.4 2-11 % Eosinophils Percent Auto 1.7 0-4 % Basophils Percent Auto 1.1 0-2 % NRBC Pct Auto 0.0 0.0-0.2 /100WBC Neutrophils Absolute Auto 3.0 2.0-8.3 x10*3/u L Imm Gran Abs Auto 0.01 0.00-0.03 X10*3/uL Lymphocytes Absolute Auto 1.6 1.2-4.9 X10*3/u L Monocytes Absolute Auto 0.6 0.1-1.2 X10*3/uL Eosinophils Absolute Auto 0.1 0.0-0.4 X10*3/u L Basophils Absolute Auto 0.1 0.0-0.2 X10*3/uL NRBC Abs Auto 0.000 0.0-0.012 X10*3/uL Comprehensive [place]. Panel Fa st Reviewed date:06/16/2025 12:35:29 PM Interpretation: Performing Lab:[facility], [address] [place] [phone] Notes/Report: Sodium 143 135-145 mmol/L Potassium 4.4 3.3-5.1 mmol/L Chloride 106 96-108 mmol/L Carbon Dioxide 29 22-29 mmol/L Anion Gap 12 12-20 Blood Urea Nitrogen 14 9-16 mg/dL Creatinine 1.17 0.5-1.4 mg/dL Estimated Glomerular Filt Rate > 60 Chronic Kidney Disease: Estimated GFR < 60 mL/min/1.73m2 Severe Kidney Disease: Estimated GFR < 15 mL/min/1.73m2 Glucose Fasting 98 60-99 mg/dL Calcium 9.3 8.4-10.2 mg/dL Bilirubin Total 0.5 0.0-1.0 mg/dL Aspartate Amino Transferase 39 5-37 U/L Alanine Aminotransferase 46 0-40 U/L Total Protein 6.8 6.5-8.0 g/dL Albumin Level 4.6 3.5-5.0 g/dL Alkaline Phosphatase 76 39-117 U/L Lipid Panel Reviewed date:06/16/2025 12:26:48 PM Interpretation: Performing Lab:[facility], [address] [place] [phone] Notes/Report: Triglycerides 68 <150 mg/dL Desirable Triglyceride: less than 150 mg/dL Borderline High Triglyceride 150-199 mg/dL High Triglyceride: 200-499 mg/dL Very High Triglyceride: greater than or equal to 5OO mg/dL Cholesterol 199 <200 mg/dL Desirable Cholesterol: less than 200 mg/dL Borderline High Cholesterol: 200-239 mg/dL High Cholesterol: greater than 239 mg/dL LDL Cholesterol Calculated 141 <100 mg/dL Desirable LDL: less than 100 mg/dL Near Optimal/Above Optimal LDL: 110-129 mg/dL Borderline High LDL: 130-159 mg/dL High LDL: 160-189 mg/dL Very High LDL: greater than or equal to 190 mg/dL HDL Cholesterol 45 >40 mg/dL Desirable HDL: greater than 40 mg/dL Note: This HDL assay may give artificially low results in patients with liver disease. TSH reflex Free T4 Reviewed date:06/16/2025 12:26:39 PM Interpretation: Performing Lab:[facility], [address] [place] [phone] Notes/Report: TSH reflex Free T4 0.25 0.32-4.0 uIU/mL UA ClnCatch+Micro w/rflx Cul t Reviewed date:06/16/2025 02:03:10 PM Interpretation: Performing Lab:[facility], [address] [place] [phone] Notes/Report: Urine, Clean Catch Color Urine Yellow Appearance Urine Clear PH 6.0 5.0-9.0 Glucose Urine UA Negative Negative mg/dL Urine Blood Negative Negative Specific [place] - Urine 1.025 1.005-1.025 Urine Protein Trace Neg-Trace mg/dL Urine Ketones Trace Negative mg/dL Nitrite Urine Negative Negative Leukocyte Esterase Urine Negative Negative RBC Urine 0-2 0-2 /HPF WBC Urine 0-5 0-5 /HPF Squamous Epithelial Cell Urine 0-2 0-2 /HPF Bacteria Urine None Seen None Seen Hyaline Casts Urine 0-2 0-2 /LPF REASON FOR VISIT FASTING LABS Encounters Encounter Location Date Provider Diagnosis Ranjit Xiao MD [address] [place], [place] [phone] 06/16/2025 Ranjit Xiao Blood tests for routine general physical examination Z00.00 and Acquired hypothyroidism E03.9 Assessments Encounter Date Diagnosis (ICD Code) Assessment Notes Treatment Notes Treatment Clinical Notes Section Notes 06/16/2025 Blood tests for routine general physical examination (ICD-10 - Z00.00) 06/16/2025 Acquired hypothyroidism (ICD-10 - E03.9) Plan Of Treatment Next Appt Details Provider Name:Ranjit anna, 02/05/2026 08:00:00 AM, [address], [address], [place], [place], [phone], Provider Name:Ranjit Mayo ier, 08/02/2026 06:45:00 AM, [address], [address], [place], [place], [phone], Provider Name:Ranjit Mayo ier, 08/09/2026 02:30:00 PM, [address], [address], [place], [place], [phone], Progress Notes * CIPRIANODwight PDOB:1975 (50 yo M)Acc No.[id number]:06/16/2025 Progress Note Patient: Dwight VIVEROS Provider: Carri Xiao MD :1975 A ge:50 Y S ex:Male Date:06/16/2025 Address:[address] [place], [place] [phone] Subjective: * Chief Complaints: * 1 . FASTING LABS. * Medical History: Objective: * Vitals: Assessment: * Assessment: 1. B lood tests for routine general physical examination - Z00.00 (Primary) 2 .?Acquired hypothyroidism - E03.9 Plan: * Treatment: 2. A cquired hypothyroidism L AB: Complete Blood Count Auto Diff (Collection Date & Time - 06/16/2025 07:00 AM) L AB: Comprehensive [place]. Panel Fast (Collection Date & Time - 06/16/2025 07:00 AM) L AB: Lipid Panel (Collection Date & Time - 06/16/2025 07:00 AM) L AB: TSH reflex Free T4 (Collection Date & Time - 06/16/2025 07:00 AM) L AB: UA ClnCatch+Micro w/rflx Cult (Collection Date & Time - 06/16/2025 07:00 AM) * Procedure Codes: 3 6415 VENIPUNCT, ROUTINE* * * The named appointment provid er may or may not be the originator of this progress note, and it is not deemed complete until electronically signed by the appointment provider. Sign off status: Pending * Provider: Carri Xiao MD Date: 0 06/16/2025 Generated for Manish winter/Beck/Brian on: 0 08/08/2025 04:14 PM EDT
--- OUTSIDE RECORDS SUMMARY | 2025-06-23 16:42 | XMS_ITS ---
Author Organization Ranjit Xiao MD Address [address] [place] [phone] Care Team Providers Care Silverware Supervisor Name Role Phone Ranjit Xiao Primary Care Provider REASON FOR VISIT Dwight Cota Encounters Encounter Location Date Provider Diagnosis Ranjit Xiao MD [address] [facility] [address] [place] [phone] 06/23/2025 Ranjit Xiao Plan Of Treatment Next Appt Details Provider Name:Ranjit Mayo ier, 02/05/2026 08:00:00 AM, [address] [place] [address], [address], [phone], Provider Name:Ranjit Mayo ier, 08/02/2026 06:45:00 AM, [address] [place] [address], [address], [phone], Provider Name:Ranjit Mayo ier, 08/09/2026 02:30:00 PM, [address] [place] [address], [address] [place] [address], [phone], Progress Notes * Dwight COTA PDOB:1975 (50 yo M)Acc No.[id number]:06/23/2025 Patient: Dwight VIVEROS :1975 A ge:50 Y S ex:Male Address:[address] [place] [address] * true * Date: Generated for Printi ng/Faxing/eTransmitting on: 0 08/08/2025 04:14 PM EDT
--- OUTSIDE RECORDS SUMMARY | 2025-06-26 05:19 | XMS_ITS ---
Author Organization Ranjit Xiao MD Address [address] [place] [phone] Care Team Providers Care Stock Associate Name Role Phone Ranjit Xiao Primary Care Provider REASON FOR VISIT appt cancel Encounters Encounter Location Date Provider Diagnosis Ranjit Xiao MD [address] [facility] [address] [place] [phone] 06/26/2025 Ranjit Xiao Plan Of Treatment Next Appt Details Provider Name:Ranjit Mayo ier, 02/05/2026 08:00:00 AM, [address] [place] [address], [address], [phone], Provider Name:Ranjit Mayo ier, 08/02/2026 06:45:00 AM, [address] [place] [address], [address], [phone], Provider Name:Ranjit Mayo ier, 08/09/2026 02:30:00 PM, [address] [place] [address], [address], [phone], Progress Notes * Dwight COTA PDOB:1975 (50 yo M)Acc No.[id number]:06/26/2025 Patient: Dwight VIVEROS :1975 A ge:50 Y S ex:Male Address:[address] [place] [address] * true * Date: Generated for Printi ng/Faxing/eTransmitting on: 0 08/08/2025 04:14 PM EDT
--- OUTSIDE RECORDS SUMMARY | 2025-08-08 06:00 | XMS_ITS ---
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 Name Role Phone Ranjit Xiao Primary Care Provider Allergies No Known Allergies Results Component Value Reference Range Notes PSA,Total (Free>4and<10) (No t yet reviewed by provider) Interpretation: Performing Lab:[facility], [address] [place] [phone] Notes/Report: PSA,Total (Free>4and<10) 3.24 0.00-4.00 ng/mL A Free PSA was not [...] Jimenez Alinity i Chemiluminescent Microparticle Immunoassay (CMIA) REASON FOR VISIT ANNUAL EXAM Medications Medication SIG (Take, Route, Frequency, Duration) Notes Start Date End Date Status Levothyroxine Sodium 200 MCG TAKE 1 TABLET BY MOUTH EVERY DAY IN THE MORNING ON AN EMPTY STOMACH Active Flonase 50 MCG/ACT 1 spray in each nostril Nasally Once a day for 30 day(s) 03/13/2014 Not-Taking Immunizations Vaccine Route Administration Date Status Comme nts Fluarix Quadrivalent - 150 Unknown 08/08/2025 Refused Social History Tobacco Use: Social History Observation [...] Interpretation Negative Vital Signs Blood pressure systolic 138 mm Hg 08/08/20 25 Blood pressure diastolic 70 mm Hg 025 Height 74 in 08/08/2025 Weight 194 lbs 08/08/2025 BMI 24.91 kg/m2 08/08/2025 weight is down 7 pounds [facility] 8-- Encounters Encounter Location Date Provider Diagnosis Ranjit Xiao MD [address] [place] [address] [place] [phone] 08/08/2025 Ranjit Xiao Annual physical exam Z00.00 ; Hypothyroid E03.9 ; Colon cancer screening Z12.11 and Depression screening Z13.31 Assessments Encounter Date Diagnosis (ICD Code) Assessment Notes Treatment Notes Treatment Clinical Notes Section Notes 08/08/2025 Annual physical exam (ICD-10 - Z00.00) labs reviewed and discussed with patient 08/08/2025 Hypothyroid (ICD-10 - E03.9) tsh is a little a low. but will leave it and recheck in month 08/08/2025 Colon cancer screening (ICD-10 - Z12.11) guaiac negative 08/08/2025 Depression screening (ICD-10 - Z13.31) negative screen Plan Of Treatment Medication Medication Name Sig Start Date Stop Date Notes Levothyroxine Sodium 200 MCG TAKE 1 TABL ET BY MOUTH EVERY DAY IN THE MORNING ON AN EMPTY STOMACH Treatment Notes Assessment Notes Annual physical exam labs reviewed and d iscussed with patient Hypothyroid tsh is a little a lo w. but will leave it and recheck in month Colon cancer screening guaiac negative Depression screening negative screen Pending Test Test Name Order Date PSA,Total (Free>4and<10) 08/08/2025 Future Test Test Name Order Date TSH reflex Free T4 02/05/2026 Next Appt Details Follow Up: 1 Year, Reason: Provider Name:Ranjit Mayo ier, 02/05/2026 08:00:00 AM, [address] [place] [address], Suite [facility], [place], [place], [phone], Provider Name:Ranjit Fisher Juanjodennis ier, 08/02/2026 06:45:00 AM, [address] [place] [address], Suite [facility], [place], [place], [phone], Provider Name:Ranjit Natalia Geigerdennis ier, 08/09/2026 02:30:00 PM, [address] [place] [address], [place] [address], [place], [place], [phone], Progress Notes * Dwight COTA PDOB:1975 (50 yo M)Acc No.[id number]:08/08/2025 Progress Notes Patient: Dwight VIVEROS Provider: Carri Xiao MD :1975 A ge:50 Y S ex:Male Date:08/08/2025 [facility] Subjective: * Chief Complaints: * 1 . ANNUAL EXAM. * HPI: D epression Screening: PHQ-9 L ittle interest or pleasure in doing things N ot at all, F eeling down, depressed, or hopeless N ot at all, T rouble falling or staying asleep, or sleeping too much N ot at all, F eeling tired or having little energy N ot at all, P oor appetite or overeating N ot at all, F eeling bad about yourself or that you are a failure, or have let yourself or your family down N ot at all, T rouble concentrating on things, such as reading the newspaper or watching television N ot at all, M oving or speaking so slowly that other people could have noticed; or the opposite, being so fidgety or restless that you have been moving around a lot more than usual N ot at all, T houghts that you would be better off or of hurting yourself in some way N ot at all, T otal Score 0 . I nterpretation and Intervention D epression Screening Findings N egative, F ollow-Up for Depression : review of PHQ-9 found negative result, no follow-up needed. C ommunication Needs: Communication Needs D oes the patient have a hearing impairment N o, D oes the patient have a vision impairment? Y es, I f yes, what is the vision impairment? G lasses, D oes the patient have a cognition impairment? N o. S SUSU Questions: SDOH Questions I n the past year have you been worried about losing housing? N o, I n the past year have you or any family members you live with been unable to get any of the following when it was really needed? Check all that apply: N one. S ymptom(s): patient is a 50 yo male here for annual visit with review of recent labs and follow up of chronic issues. * ROS: G eneral/Constitutional: Change in appetite d enies. D enies C hills, d enies. D enies F atigue. D enies F ever, d enies. D enies H eadache.? O phthalmologic: Blurred vision d enies. D ischarge d enies. P ain d enies. E NT: Decreased hearing d enies. D enies S ore throat,?denies. S wollen glands d enies. E ndocrine: Cold intolerance d enies. E xcessive thirst d enies. H eat intolerance d enies. W eight loss d enies. R espiratory: Denies C ough, d enies. D enies S hortness of breath at rest, d enies. D enies S hortness of breath with exertion, d enies. W heezing d enies. C ardiovascular: Chest pain at rest d enies. C hest pain with exertion?denies. I rregular heartbeat d enies. S hortness of breath d enies. ? G astrointestinal: Abdominal pain d enies. C hange in bowel habits d enies. D enies D iarrhea, d enies. D enies N ausea, d enies. R ectal bleeding d enies. V omiting d enies . G enitourinary: Blood in urine d enies. D ifficulty urinating d enies. F requent urination d enies. M usculoskeletal: Painful joints d enies. W eakness d enies. ? S kin: Dry skin d enies. I tching d enies. D enies?Mole(s), changes in moles, new moles or any lesions of concern. D enies P hotosensitivity. R erica d enies. N eurologic: Dizziness d enies. F ainting d enies. H eadache?denies. * Medical History: R efuses flu shot, Colonoscopy 02/07 repeat 3y. * Family History: F ather: 66 yrs, diagnosed with COPD. M other: alive 70 yrs. 1 brother(s) . 2 son(s) . . No pertinent family medical history, Denies mental health/substance abuse family history Father was an alcoholic, No pertinent family medical history,. * Social History: T obacco Use: T obacco Use/Smoking P atient is a n onsmoker, A dditional Findings: Tobacco Non-User C urrent non-smoker, currently using no form of tobacco. D rugs/Alcohol: A lcohol Screen D id you have a drink containing alcohol in the past year? Y es, H ow often did you have a drink containing alcohol in the past year? 2 to 4 times a month (2 points), H ow many drinks did you have on a typical day when you were drinking in the past year? 1 or 2 drinks (0 point), H ow often did you have 6 or more drinks on one occasion in the past year? N ever (0 point), P oints 2 , I nterpretation N egative. M iscellaneous: C affeine: yes, frequency: 1 cup per day. Children: yes. 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 Exercise: yes, push ups and sit iups daily. Housing: owning. Living with: spouse and children. Marital status: . Occupation: works full-time. Pets: dog x1 cat x1. * Medications: T aking Levothyroxine Sodium 200 MCG Tablet TAKE 1 TABLET BY MOUTH EVERY DAY IN THE MORNING ON AN EMPTY STOMACH , Not-Taking/PRN Flonase 50 MCG/ACT Suspension 1 spray in each nostril Nasally Once a day , Medication List reviewed and reconciled with the patient * Allergies: N .K.D.A. Objective: * Vitals: H t: 74, Wt: 194, BMI:24.91, BP:138/70, Wt-k. weight is down 7 pounds since 06-17-24. * P ast Orders: L ab:UA ClnCatch+Micro w/rflx Cult (Order Date - 06/16/2025) (Collection Date & Time - 06/16/2025 07:00 AM) Value Reference Range Color Urine Yellow - Appearance Urine Clear - PH 6.0 5.0-9.0 - Glucose Urine UA Negative Negative - mg/dL Urine Blood Negative Negative - Specific Silas - Urine 1.025 1.005-1.025 - Urine Protein Trace Neg-Trace - mg/dL Urine Ketones Trace Negative - mg/dL Nitrite Urine Negative Negative - Leukocyte Esterase Urine Negative Negative - RBC Urine 0-2 0-2 - /HPF WBC Urine 0-5 0-5 - /HPF Squamous Epithelial Cell Urine 0-2 0-2 - /HP F Bacteria Urine None Seen None Seen - Hyaline Casts Urine 0-2 0-2 - /LPF L ab:Free T4 (Free Thyroxine) (Order Date - 06/16/2025) (Collection Date & Time - 06/16/2025 07:00 AM) Value Reference Range Free T4 (Free Thyroxine) 1.40 0.71-1.85 - ng/ dL L ab:Comprehensive [place]. Panel Fast (Order Date - 06/16/2025) (Collection Date & Time - 06/16/2025 07:00 AM) Value Reference Range Sodium 143 135-145 - mmol/L Bilirubin Total 0.5 0.0-1.0 - mg/dL Aspartate Amino Transferase 39 H 5-37 - U/L Alanine Aminotransferase 46 H 0-40 - U/L Total Protein 6.8 6.5-8.0 - g/dL Albumin Level 4.6 3.5-5.0 - g/dL Alkaline Phosphatase 76 39-117 - U/L Potassium 4.4 3.3-5.1 - mmol/L Chloride 106 96-108 - mmol/L Carbon Dioxide 29 22-29 - mmol/L Anion Gap 12 12-20 - Blood Urea Nitrogen 14 9-16 - mg/dL Creatinine 1.17 0.5-1.4 - mg/dL Estimated Glomerular Filt Rate > 60 - Glucose Fasting 98 60-99 - mg/dL Calcium 9.3 8.4-10.2 - mg/dL L ab:Lipid Panel (Order Date - 06/16/2025) (Collection Date & Time - 06/16/2025 07:00 AM) Value Reference Range Triglycerides 68 <150 - mg/dL Cholesterol 199 <200 - mg/dL LDL Cholesterol Calculated 141 H <100 - mg/dL HDL Cholesterol 45 >40 - mg/dL L ab:TSH reflex Free T4 (Order Date - 06/16/2025) (Collection Date & Time - 06/16/2025 07:00 AM) Value Reference Range TSH reflex Free T4 0.25 L 0.32-4.0 - uIU/mL L ab:Complete Blood Count Auto Diff (Order Date 06/16/2025) (Collection Date & Time - 06/16/2025 07:00 AM) Value Reference Range White Blood Count 5.3 4.8-10.8 - X10*3/uL Red Blood Count 4.76 4.60-5.80 - X10*6/uL Hemoglobin 15.0 14.0-18.0 - g/dl Hematocrit 43.5 42.0-52.0 - % Mean Corpuscular Volume 91.4 80.0-98.0 - fL Mean Corpuscular Hemoglobin 31.5 27.0-33.0 - pg Mean Corpuscular HGB Conc 34.5 31.0-36.0 - g/ dl Red Cell Distribution Width 12.9 11.0-16.0 - % Platelet Count 214 160-400 - X10*3/uL Mean Platelet Volume 10.3 9.4-12.4 - fL Neutrophils Percent Auto 56.2 45-73 - % Imm Gran Pct Auto 0.2 0.0-0.4 - % Lymphocytes Percent Auto 29.4 20-40 - % Monocytes Percent Auto 11.4 H 2-11 - % Eosinophils Percent Auto 1.7 0-4 - % Basophils Percent Auto 1.1 0-2 - % NRBC Pct Auto 0.0 0.0-0.2 - /100WBC Neutrophils Absolute Auto 3.0 2.0-8.3 - x10* 3/uL Imm Gran Abs Auto 0.01 0.00-0.03 - X10*3/uL Lymphocytes Absolute Auto 1.6 1.2-4.9 - X10* 3/uL Monocytes Absolute Auto 0.6 0.1-1.2 - X10*3/ uL Eosinophils Absolute Auto 0.1 0.0-0.4 - X10* 3/uL Basophils Absolute Auto 0.1 0.0-0.2 - X10*3/ uL NRBC Abs Auto 0.000 0.0-0.012 - X10*3/uL * Examination: G eneral Examination: GENERAL APPEARANCE: w ell developed, well nourished, in no acute distress. HEAD: n ormocephalic, atraumatic. EYES: p upils equal, round, reactive to light and accommodation, sclera non-icteric. EARS: n ormal. ORAL CAVITY: m ucosa moist. THROAT: c lear. NECK/THYROID: n richelle supple, full range of motion, no cervical lymphadenopathy, no bruits. SKIN: w arm and dry, no suspicious lesions. HEART: r egular rate and rhythm, S1, S2 normal, no murmurs.? LUNGS: c lear to auscultation bilaterally. ABDOMEN: s oft, nontender, nondistended, bowel sounds present, normal, no organomegaly , no masses palpable. RECTAL EXAM: n ormal tone, no external hemorrhoids, no masses palpable, prostate normal, no stool sent with card. MALE GENITOURINARY: c ircumcised, no testicular mass, prostate normal. EXTREMITIES: n o clubbing, cyanosis, or edema. NEUROLOGIC: n onfocal, motor strength normal upper and lower extremities, sensory exam intact. Assessment: * Assessment: 1. A nnual physical exam - Z00.00 (Primary) 2 . H ypothyroid - E03.9 ? 3 . C olon cancer screening - Z12.11 4 . D epression screening - Z13.31 Plan: * Treatment: 2. H ypothyroid Continue Levothyroxine Sodium Tablet, 200 MCG, TAKE 1 TABLET BY MOUTH EVERY DAY IN THE MORNING ON AN EMPTY STOMACH. L AB: TSH reflex Free T4 (Ordered for 02/05/2026) Notes: tsh is a little a low. but will leave it and recheck in month 3. C olon cancer screening Notes: guaiac negative 4. D epression screening Notes: negative screen * Immunizations: Fluarix Quadrivalent - 150 (Not administered - Refused: Patient decision) * Procedure Codes: 3 6415 VENIPUNCT, ROUTINE* * Preventive Medicine: Immunizations: I nfluenza H ave you had a flu shot since the most recent July 17? N o patient refused at visit today. * Follow Up: 1 Year * * The named appointment provid er may or may not be the originator of this progress note, and it is not deemed complete until electronically signed by the appointment provider. Sign off status: Pending * Provider: Carri Xiao MD Date: 08/08/2025 Generated for Manish winter/Beck/Nealsmitting on: 08/08/2025 04:13 PM EDT History and Physical Notes * HPI (History of Present Illness) Category Sub-Category Detail Notes Category Not es Symptom(s) patient is a 50 yo male here for annual visit with review of recent labs and follow up of chronic issues Depression Screening PHQ-9 Little inte rest or [...] patient have a vision impairmen t?: Yes If yes, what is the vision impairment?: Glasses Does the patient have a cognition impair ment?: No Examination Category Sub-Category Detail Notes Category Not es General Examination GENERAL APPEARANCE: well dev eloped, well nourished, in no acute distress HEAD: normocephalic, atrau matic EYES: pupils equal, round, reactive to light and accommodation, sclera non-icteric EARS: normal THROAT: clear NECK/THYROID: neck supple, [...] sensory exam intact SKIN: warm and dry, no shakir picious lesions EXTREMITIES: no clubbing, cyanosi s, or edema MALE GENITOURINARY: circumcised, no test icular mass, prostate normal RECTAL EXAM: normal tone, no exte rnal hemorrhoids, no masses palpable, prostate normal, no stool sent with card ORAL CAVITY: mucosa moist
[2025-08-08 13:48] LABS: PSA,Total (Free>4and<10) 3.24 ng/mL (0.00-4.00)
--- OUTSIDE RECORDS SUMMARY | 2025-08-08 16:14 | XMS_ITS | Patient Health Record ---
Author Organization [facility] Address [address] [place] [address] Care Team Providers Care Adjunct Writing Instructor Name Role Phone Ranjit Xiao MD Primary Care Provider Garry Navas [phone] Allergies No Known Allergies Results Component Value Reference Range Notes Pathology Reviewed date:06/19/2025 08:24:29 AM Interpretation: Performing Lab:[facility], [address] [place] [phone] Notes/Report: Reason For Referral No Information Medications [...] Status Risk Notes Problem Colon cancer screening (522966666) Colon cancer screening (Z12.11) Active confirmed Problem Dysphagia (88983907) Dysphagia (R13.10) Active confirmed Vital Signs Blood pressure diastolic 00 mm Hg 10/21/2024 Height 6 ft 2 in in 10/21/2024 Blood pressure systolic 00 mm Hg 10/21/2024 Weight 187 lbs 10/21/2024 BMI 24.01 kg/m2 10/21/2024 Encounters Encounter Location Date Provider Diagnosis [facility] [place] [address] [place] [phone] 01/20/2025 Garry Jeff Colon cancer screeni ng Z12.11 ; Colon polyps K63.5 ; Diverticulosis of large intestine without perforation or abscess without bleeding K57.30 ; Dysphagia R13.10 ; Gastric ulcer K25.9 and Gastritis K29.70 [facility] [address] [place] [phone] 10/21/2024 Garry Tomer Dysphagia R13.10 and Colon cancer screening Z12.11 [facility] [address] [place] [phone] 01/29/2025 Garry Jeff [facility] [address] [place] [phone] 06/09/2025 Garry Jeff Assessments Encounter Date Diagnosis (ICD [...] Gastritis (ICD-10 - K29.70) Plan Of Treatment Future Test Test Name Order Date UPPER GI ENDOSCOPY [place] DILATION OF ESOPH 10/21/2024 COLONOSCOPY 10/21/2024 Insurance Providers Payer Name Payer Address Payer Phone Subscriber Number Group Number Insured Name Patient Relationship to Insured Coverage Start Date Coverage End Date [facility] [address] JONATHAN [place] [id number] DWIGHT COTA Self - patient is the insured Medical (General) History Medical History History ICD Code Hyperthyroidsim with subsequent hypothry oidism 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
--- OUTSIDE RECORDS SUMMARY | 2025-08-08 16:14 | XMS_ITS | Clinical Summary ---
Author Organization [facility] Address [address] [place] [phone] Phone Care Team Providers Care Manager Military Name Role Phone Ranjit Xiao MD Primary [...] COVID-19 (Pre-09/07) Pfizer Vaccine, mRNA, PF 05/17/2021,04/26/2021,03/20/2021 INFLUENZA, SPLIT VIRUS, TRIVALENT PF 08/10/2020, 08/09/2018,08/07/2016 Social History Tobacco Use Types Packs/Day Years [...] HEPATITIS C SCREENING 1992 HIV ONE-TIME SCREENING (18-65 YEARS) 1992 COLOGUARD 2019 COLONOSCOPY 2019 COLORECTAL CANCER SCREENING 2019 FIT TEST 2019 FOBT 2019 SIGMOIDOSCOPY 2019 VIRTUAL COLONOSCOPY 2019 PNEUMOCOCCAL VACCINES (50+ years) (1 of 1 - PCV) 2024 ZOSTER VACCINES (1 of 2) 2024 SCREENING FOR DIABETES 07/13/2024 07/13/2021 INFLUENZA VACCINE (#1) 2025 , 08/10/2020, 08/09/2018, Additional history exists COVID-19 VACCINE ( - 2024- season) 2025 05/17/2021, 04/26/2021, 03/20/2021 SMOKING STATUS SCREENING (Once After 26 Yrs) Completed 08/02/2023 HEPATITIS A [...] topic Medical Devices Not on file Insurance OUT [facility] PPO [facility] PPO [employer]UE [place] OUT OF STATE PPO BLUE [place] OUT OF STATE PPO [employer] [place] OUT OF STATE PPO [employer] [place] OUT OF STATE PPO [employer] OUT OF STATE PPO [employer] [place] OUT OF STATE PPO [facility] OUT STATE PPO Care Teams Manager Military Relationship Specialty Start Date End Date Ranjit Xiao MD [address] [place] [address] [place] [address] PCP - General Internal Medicine 01/01/19 Additional Source Comments The information contained in this document represents components of the legal health record. It is not the complete legal health record.[facility]
--- OUTSIDE RECORDS SUMMARY | 2025-08-08 16:14 | XMS_ITS | Patient Health Record ---
Author Organization Ranjit Xiao MD Address [address] [place], [place] [address] Care Team Providers Care Nocturnist Name Role Phone Ranjit Xiao Primary Care Provider Allergies No Known Allergies Results Component Value Reference Range Notes Complete Blood Count Auto Di ff Reviewed date:06/16/2025 12:36:15 PM Interpretation: Performing Lab:[facility], [address] [place] [phone] Notes/Report: White Blood Count 5.3 4.8-10.8 X10*3/uL [...] 0.0-0.2 /100WBC Neutrophils Absolute Auto 3.0 2.0-8.3 x10*3/uL Imm Gran Abs Auto 0.01 0.00-0.03 X10*3/uL Lymphocytes Absolute Auto 1.6 1.2-4.9 X10*3/uL Monocytes Absolute Auto 0.6 0.1-1.2 X10*3/uL Eosinophils Absolute Auto 0.1 0.0-0.4 X10*3/uL Basophils Absolute Auto 0.1 0.0-0.2 X10*3/uL NRBC Abs Auto 0.000 0.0-0.012 X10*3/uL Comprehensive Applegate. Panel Fa st Reviewed date:06/16/2025 12:35:29 PM Interpretation: Performing Lab:[facility], [address] [place] [phone] Notes/Report: Sodium 143 135-145 mmol/L Potassium 4.4 [...] Panel Reviewed date:06/16/2025 12:26:48 PM Interpretation: Performing Lab:[facility], [address] [place] [phone] Notes/Report: Triglycerides 68 <150 mg/dL Desirable Triglyceride: [...] T4 Reviewed date:06/16/2025 12:26:39 PM Interpretation: Performing Lab:[facility], [address] [place] [phone] Notes/Report: TSH reflex Free T4 0.25 0.32-4.0 uIU/mL UA ClnCatch+Micro w/rflx Cul t Reviewed date:06/16/2025 02:03:10 PM Interpretation: Performing Lab:[facility], [address] [place] [phone] Notes/Report: Urine, Clean Catch Color Urine Yellow Appearance Urine Clear PH 6.0 5.0-9.0 Glucose Urine UA Negative Negative mg/dL Urine Blood Negative Negative Specific Avant - Urine 1.025 1.005-1.025 Urine Protein Trace Neg-Trace mg/dL Urine Ketones Trace Negative mg/dL Nitrite Urine Negative Negative Leukocyte Esterase Urine Negative Negative RBC Urine 0-2 0-2 /HPF WBC Urine 0-5 0-5 /HPF Squamous Epithelial Cell Urine 0-2 0-2 /HPF Bacteria Urine None Seen None Seen Hyaline Casts Urine 0-2 0-2 /LPF PSA,Total (Free>4and<10) (No t yet reviewed by provider) Interpretation: Performing Lab:[facility], [address] [place] [phone] Notes/Report: PSA,Total (Free>4and<10) 3.24 0.00-4.00 ng/mL A [...] Jimenez Alinity i Chemiluminescent Microparticle Immunoassay (CMIA) Complete Blood Count Auto Di ff Reviewed date:01/22/2025 02:47:38 PM Interpretation: Performing Lab:[facility], [address] [place] [phone] Notes/Report: White Blood Count 14.0 4.8-10.8 X10*3/uL Red Blood Count 5.12 4.60-5.80 X10*6/uL Hemoglobin 16.6 14.0-18.0 g/dl Hematocrit 45.4 42.0-52.0 % Mean Corpuscular Volume 88.7 80.0-98.0 fL Mean Corpuscular Hemoglobin 32.4 27.0-33.0 pg Mean Corpuscular HGB Conc 36.6 31.0-36.0 g/dl Red Cell Distribution Width 12.3 11.0-16.0 % Platelet Count 241 160-400 X10*3/uL Mean Platelet Volume 10.3 9.4-12.4 fL Neutrophils Percent Auto 89.4 45-73 % Imm Gran Pct Auto 0.4 0.0-0.4 % Lymphocytes Percent Auto 5.3 20-40 % Monocytes Percent Auto 4.5 2-11 % Eosinophils Percent Auto 0.1 0-4 % Basophils Percent Auto 0.3 0-2 % NRBC Pct Auto 0.0 0.0-0.2 /100WBC Neutrophils Absolute Auto 12.5 2.0-8.3 x10*3/uL Imm Gran Abs Auto 0.06 0.00-0.03 X10*3/uL Lymphocytes Absolute Auto 0.7 1.2-4.9 X10*3/uL Monocytes Absolute Auto 0.6 0.1-1.2 X10*3/uL Eosinophils Absolute Auto 0.0 0.0-0.4 X10*3/uL Basophils Absolute Auto 0.0 0.0-0.2 X10*3/uL NRBC Abs Auto 0.000 0.0-0.012 X10*3/uL Prothrombin Time INR Reviewed date:01/22/2025 02:46:33 PM Interpretation: Performing Lab:[facility], [address] [place] [phone] Notes/Report: Prothrombin Time 11.5 10.9-12.4 SEC [employer] [...] valves: 2.5 - 3.5 Comprehensive Met. Panel Reviewed date:01/22/2025 02:47:09 PM Interpretation: Performing Lab:[address] [phone] Notes/Report: Sodium 142 135-145 mmol/L Potassium 4.2 [...] Alkaline Phosphatase 78 39-117 U/L Lactic Acid Reviewed date:01/22/2025 02:46:17 PM Interpretation: Performing Lab:[facility], [address] [place] [phone] Notes/Report: Lactic Acid 1.9 0.5-2.0 mmol/L Magnesium Reviewed date:01/22/2025 02:46:25 PM Interpretation: Performing Lab:[facility], [address] [place] [phone] Notes/Report: Magnesium 1.6 1.6-2.6 mg/dL Troponin-I High Sensitivity Reviewed date:01/22/2025 02:46:46 PM Interpretation: Performing Lab:[facility], [address] [place] [phone] Notes/Report: Troponin-I High Sensitivity 3.3 <3.5-35.0 ng/L The Jimenez high sensitivity Troponin-I results should be used in conjunction with other diagnostic information such as ECG, clinical observations and information, and patient symptoms to aid in the diagnosis of NE. Pathology Reviewed date:01/25/2025 07:07:04 PM Interpretation: Performing Lab:[facility], [address] [place] [phone] Notes/Report: ---- Name: Dwight Rae Age/Sex: 49/M : 1975 Unit#: [id number] Attend Dr: Garry Jeff MD Re01/20/25 Status : [facility] Location: [facility] Disch: ---- SPEC : [id number] RECD : 01/20/25 STATUS: JES HERNANDES NUM: [id number] BENJA: 01/20/25105 [facility] DR: Garry Jeff MD ENTERED: 01/20/25 10 SP TYPE: Surgical OTHR DR: Ranjit Xiao MD ORDERED: HE Stain/18 , Gross Micro L4/6, IHC/2, H. pylori/2, Eso bx BA w/exc Addendum Addendum 1 Entered: 01/25/25 (B and C): Immunosta ins for H. pylori are negative with appropriate control. Addendum Signed (signature on file) Lupe Vladimir 01/25/25926 ---- Diagnosis A. Esophagogastric junction, at 40 cm, biopsy: Squamous mucosa with hyperplasia and focal intraepithelia l eosinophils (up to 4 per high-power field) consistent with esophagitis, and columnar mucosa with chronic active inflammation and intestinal metaplasia; negative for dysplasia (see comment). B. Gastric antral ul cer, biopsy: Reactive gastropathy with active erosion and ulcer; negative for intesti nal metaplasia and dysplasia. C. Gastric antrum, biopsy: Reactive gastropathy with minimal chronic inactive inflammation; negati ve for intestinal metaplasia and dysplasia. D. Colon, transverse , polyp: Tubular adenoma; negative for high-grade dysplasia and carcinoma. E. Colon, cecal poly p: Tubular adenoma; negative for high-grade dysplasia and carcinoma. F. Colon at 50 cm, polyp: Tubular adenoma with features of traditional serrated adenoma, appears excised; negative for high-grade dysplasia and carcinoma. 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 Clinical and endoscopic correlation is advised. (B and C): Immunosta ins for H. pylori pending; addendum to follow. CONTINUED ON NEXT PAGE ---- Name: Dwight Rae Age/Sex: 49/M : 1975 Unit#: [id number] Attend Dr: Garry Jeff MD Re01/20/25 Status : [facility] Location: [facility] Disch: ---- SPEC : [id number] RECD : 01/20/25-1219 STATUS: JES HERNANDES NUM: [id number] BENJA: 01/20/25-[address] [facility] [address]: Garry Jeff MD ENTERED: 01/20/25-13 10 SP TYPE: Surgical OTHR DR: Ranjit Xiao MD ORDERED: HE Stain/18 , Gross Micro L4/6, IHC/2, H. pylori/2, Eso bx BA w/exc Clinical History Pre-Op Dx: Dysphagia , screening Post-Op Dx: Gastric ulcer, gastritis, hiatal hernia, esophagitis, colon polyps, diverticulitis, hemorrhoids Microscopic Description Microscopic sections reviewed. Material Received A. Bx's of EG juncti on at 40 B. Bx's of gastric antral ulcer C. Bx's of gastric antrum D. Transverse colon polyp E. Cecal poylp F. Polyp at 50 Gross Description Received in 6 parts. A. Received in forma anders labeled ?biopsies of EG junction at 40? are 4 fragments of pink white soft tissue measuring 0.2-0.4 cm in greatest dimension which are wrapped in lens paper and entirely submitt ed for microscopic examination, 4 pieces in cassette A. B. Received in forma anders labeled ?biopsies of gastric antral ulcer? are 3 fragments of red- pink soft tissue measuring 0.2-0.3 cm in greatest dimension which are wrapped in lens paper and entirely submitt ed for microscopic examination, 3 pieces in cassette B. C. Received in forma anders labeled ?biopsies of gastric antrum? are 3 fragments of spencer-white soft tissue measurin g 0.3-0.4 cm in greatest dimension which are wrapped in lens paper and entirely submitted f or microscopic examination, 3 pieces in cassette C. D. Received in forma anders labeled ?transverse colon polyp? is a fragment of red-pink soft tissue measuring 0.5 cm in greatest dimension which is wrapped in lens paper and entirely submitted for microscopic examination, 1 piece in cassette D. E. Received in forma ROOOMERS labeled ?cecal polyp? are 4 fragments of pink-spencer soft tissue measuring 0.3-0.5 cm in greatest dimension which are wrapped in lens paper and entirely submitted for microscopic examination, 4 pieces in cassette E. F. Received in forma ROOOMERS labeled ?polyp at 50? is a polypoid portion of red-pink soft tissue CONTINUED ON NEXT PAGE ---- Name: Dwight Rae Age/Sex: 49/M : 1975 Unit#: [id number] Attend Dr: Garry Jeff MD Re01/20/25 Status : [facility] Location: [facility] Disch: ---- SPEC : [id number] RECD : 01/20/25-1218 STATUS: JES HERNANDES NUM: [id number] BENJA: 01/20/25-[address] [facility] [address]: Garry Jeff MD ENTERED: 01/20/25- 10 SP TYPE: Surgical OTHR DR: Ranjit Xiao MD ORDERED: HE Stain/18 , Gross Micro L4/6, IHC/2, H. pylori/2, Eso bx BA w/exc Gross Description (Continued) measuring 1.5 x 1.3 x 0.7 cm in greatest dimension. The outer surface is smooth. Base is spencer-white and unremarkable. The base is inked blue. The specimen is bisected, wrapped in lens paper and entir robin submitted for microscopic examination, 2 pieces in cassette F. ([facility]) Special studies orde red and performed: Immunostain for H. pylori on B1 and C1. Copies To: Ranjit Xiao MD [facility] [address] [place] [address] Garry Jeff MD [facility] [address] [place] [address] ---- Signed (signature on file) Lupe Gilbert 01/23/25 1519 ---- END OF REPORT SARS-CoV2/FLU/RSV Reviewed date:01/22/2025 02:44:56 PM Interpretation: Performing Lab:[address] [phone] Notes/Report: Influenza A PCR NEGATIVE Negative Influenza B PCR NEGATIVE Negative Resp Syncy Virus RNA Qual PCR NEGATIVE Negative SARS COV2 PCR INHOUSE NEGATIVE Negative All test results must be correlated with clinical findings. Negative results do not preclude SARS-CoV2, influenza A virus, influenza B virus and/or RSV infection and should not be used as the sole basis for treatment or other patient management decisions. Negative results must be combined with clinical observations, patient history, and epidemiological information. This test has not been evaluated for monitoring treatment of infection. This test has been authorized by the FDA under an Emergency Use Authorization (EUA) for use by authorized laboratories. Testing performed on the [employer] GeneXpert utilizing real-time RT-PCR. All SARS CoV2 and positive influenza A/B results are reported to [facility]. Blood Culture (First) Reviewed date:01/26/2025 04:14:45 PM Interpretation: Performing Lab:[address] [phone] Notes/Report: Blood Culture (First) No growth after 5 days. Blood Culture (Second) Reviewed date:01/26/2025 12:40:42 PM Interpretation: Performing Lab:[facility], [address] [place] [phone] Notes/Report: Blood Culture (Second) No growth after 5 days. Type and Screen Reviewed date:01/22/2025 02:46:09 PM Interpretation: Performing Lab:[address] [phone] Notes/Report: Blood Type OP Antibody Screen NEGATIVE CT chest w con Reviewed date:01/22/2025 02:44:47 PM Interpretation: Performing Lab: Notes/Report: [address] [address] [address] Scan Report Signed Patient: Dwight Rae MR#: [id number] 7 : 1975 Acct:[id number] Age/Sex: 49 / M ADM Date: 01/20/25 Loc: .ED Attending Dr: Ordering Physician: Sole Brooks Date of Service: 01/20/25 Procedure(s): CT chest w IV con Accession Number(s): [id number] cc: Ranjit Xiao MD; Sole Brooks Report Number: [id number]: Total DLP = 0.00 mGy-cm CLINICAL HISTORY: concern for perofration after endoscopy CT chest with contrast Comparison: None Findings: Normal heart size. No pericardial effusion. Calcific coronary artery disease: None. Normal caliber thoracic aorta. No evidence of mediastinal hematoma. No pneumomediastinum. 3 mm pulmonary nodule right apex axial image 32. 4 mm pulmonary nodule left base image 141. Consider Fleischner criteria No pneumothorax or pleural effusions, plaques or calcifications. Central airways are patent. No bronchiectasis. No thyroid nodules. No chest wall masses.No axillary adenopathy. Limited view of the upper abdomen is normal. No acute fractures or pathologic bone lesions. Impression: 1. No evidence of mediastinitis. 2. No pneumomediastinum. 3. 3 mm pulmonary nodule right apex and 4 mm pulmonary nodule left base consider Fleischner criteria. Fleischner Society 2017 Guidelines for incidentally detected indeterminate nodules in persons 35 years of age or older. Multiple Solid Nodules: 5 mm or smaller nodules need no follow-up in low risk, and [address] follow-up is optional in high risk patients. This document has been electronically signed by: Eder Razo MD on 01/20/2025 20:46:04 Dictated By: Eder Razo MD Signed By: <Electronically signed by Eder Razo MD in OV> 01/20/252045 DD/ 45 TD/TT: 01/20/252045 Director Dental Services: [address] [address] [address] Scan Report Signed Patient: Dwight Rae MR#: [id number] 7 : 1975 Acct:[id number] Age/Sex: 49 / M ADM Date: 01/20/25 Loc: HO.ED Attending Dr: Ordering Physician: Sole Brooks Date of Service: 01/20/25 Procedure(s): CT pa[address] st w IV con Accession Number(s): [id number] cc: Ranjit Xiao MD; Sole Brooks Report Number: [id number]: Total DLP = 0.00 mGy-cm CLINICAL HISTORY: concern for perofration after endoscopy CT chest with contrast Comparison: None Findings: Normal heart size. N o pericardial effusion. Calcific coronary artery disease: None. Normal caliber thora cic aorta. No evidence of mediastinal hematoma. No pneumomediastinum. 3 mm pulmonary nodul e right apex axial image 32. 4 mm pulmonary nodule left base image 141. Consider Fleischner criteria No pneumothorax or pleural effusions, plaques or calcifications. Central airways are patent. No bronchiectasis. No thyroid nodules. No chest wall masses.No axillary adenopathy. Limited view of the upper abdomen is normal. No acute fractures o r pathologic bone lesions. Impression: 1. No evidence of mediastinitis. 2. No pneumomediastinum. 3. 3 mm pulmonary no dule right apex and 4 mm pulmonary nodule left base consider Fleischner criteria. ____ Fleischner Society 2 017 Guidelines for incidentally detected indeterminate nodules in persons 3 5 years of age or older. Multiple Solid Nodules: 5 mm or smaller nodu les need no follow-up in low risk, and [address] follow-up is optiona l in high risk patients. This document has be en electronically signed by: Eder Razo MD on 01/20/2025 20:46:04 Dictated By: Eder Razo MD Signed By: <Electronically signed by Eder Razo MD in OV> 01/20/252045 DD/ 45 TD/TT: 01/20/252045 Director Dental Services: CT abdomen pelvis w con Reviewed date:01/22/2025 02:46:01 PM Interpretation: Performing Lab: Notes/Report: [address] [address] [address] Scan Report Signed Patient: KyraDwight Fisher MR#: [id number] 7 : 1975 Acct:[id number] Age/Sex: 49 / M ADM Date: 01/20/25 Loc: HO.ED Attending Dr: Ordering Physician: Sole Brooks Date of Service: 01/20/25 Procedure(s): CT abdomen pelvis w IV con Accession Number(s): [id number] cc: Ranjit Xiao MD; Sole Brooks Report Number: [id number]: Total DLP = 809.00 mGy-cm CLINICAL HISTORY: concern for perf after scope, pain CT abdomen and pelvis with IV contrast Comparison: None Findings: Lung bases show no active disease. No dependent layering pleural effusions. The heart is not enlarged. Coronary artery calcifications: None. Liver normal size and contour. No focal hepatic lesions. Patent hepatic and portal veins. Physiologic distention of the gallbladder with no radiopaque gallstones. Homogeneous enhancement of the pancreas. No splenomegaly. Normal adrenal glands. Symmetrical renal excretion with no segmental or diffuse renal parenchymal disease or evidence of obstructive uropathy/hydroureteronephrosis. Normal caliber abdominal aorta. Bowel demonstrates a nonobstructive pattern. No free air. Probable post appendectomy clip.Enterocolitis.No significant diverticular disease. No intraperitoneal, retroperitoneal, pelvic or inguinal masses lymphadenopathy or abnormal fluid collections. Partially decompressed urinary bladder. No vertebral body compression fractures or spondylolisthesis. Tarlov cysts S2. Probable bone island right iliac bone. Impression: 1. Enterocolitis. No significant diverticular disease. Probable post appendectomy. 2. No free air fluid or abscess. No evidence of mechanical bowel obstruction. 3. Ancillary findings as described. This document has been electronically signed by: Eder Razo MD on 01/20/2025 20:39:43 Dictated By: Eder Razo MD Signed By: <Electronically signed by Eder Razo MD in OV> 01/20/252039 DD/ 38 TD/TT: 01/20/252038 Director Dental Services: [place] [address] [address] Scan Report Signed Patient: Dwight Rae MR#: [id number] 7 : 1975 Acct:[id number] Age/Sex: 49 / M ADM Date: 01/20/25 Loc: HO.ED Attending Dr: Ordering Physician: Sole Brooks Date of Service: 01/20/25 Procedure(s): CT abd omen pelvis w IV con Accession Number(s): [id number] cc: Ranjit Xiao MD; Sole Brooks Report Number: [id number]: Total DLP = 809.00 mGy-cm CLINICAL HISTORY: concern for perf after scope, pain CT abdomen and pelvi s with IV contrast Comparison: None Findings: Lung bases show no active disease. No dependent layering pleural effusions. The heart is not enlarged. Coronary artery calcifications: None. Liver normal size an d contour. No focal hepatic lesions. Patent hepatic and portal veins. Physiologic distention of the gallbladder with no radiopaque gallstone s. Homogeneous enhancement of the pancreas. No splenomegaly. Normal adrenal gland s. Symmetrical renal excretion with no segmental or diffuse renal parenchymal disease or evidence of obstructive uropathy/hydroureter onep hrosis. Normal caliber abdominal aorta. Bowel demonstrates a nonobstructive pattern. No free air. Probable post appendectomy clip.Enterocolitis.No significant diverticular disease. No intraperitoneal, retroperitoneal, pelvic or inguinal masses lymphadenopathy or abnormal fluid collections. Partially decompressed urinary bladder. No vertebral body compression fractures or spondylolisthesis. Tarlov cysts S2. Probable bone is land right iliac bone. Impression: 1. Enterocolitis. No significant diverticular disease. Probable post appendectomy. 2. No free air fluid or abscess. No evidence of mechanical bowel obstruction. 3. Ancillary finding s as described. This document has be en electronically signed by: Eder Razo MD on 01/20/2025 20:39:43 Dictated By: Eder Razo MD Signed By: <Electronically signed by Eder Razo MD in OV> 01/20/252039 DD/ 38 TD/TT: 01/20/252038 Director Dental Services: Free T4 (Free Thyroxine) Reviewed date:06/16/2025 12:25:47 PM Interpretation: Performing Lab:[facility], [address] [place] [phone] Notes/Report: Free T4 (Free Thyroxine) 1.40 0.71-1.85 ng/dL Perry Marks Reviewed date:06/16/2025 12:26:02 PM Interpretation: Performing Lab:[facility], [address] [place] [phone] Notes/Report: Perry Marks See Note Specimen held untested for 24 hours; Call to request Chemistry testing. Reason For Referral No Information Medications Medication [...] Fluarix Quadrivalent IM Intramuscular 09/07/2023 Administe red Fluarix Quadrivalent - 150 Unknown 08/08/2025 Refused [...] Problem Status W/U Status Risk Notes Problem 464319109 Acquired hypothyroidism (E03.9) Active confirmed Vital Signs Blood pressure diastolic 70 mm Hg 08/08/2025 yareli ght is down 7 pounds since 06-17-24 Height 74 in 08/08/2025 weight is down 7 pounds since 06-17-24 Blood pressure systolic 138 mm Hg 08/08/2025 weig ht is down 7 pounds since 06-17-24 Weight 194 lbs 08/08/2025 weight is down 7 pounds since 06-17-24 BMI 24.91 kg/m2 08/08/2025 weight is down 7 pounds since 06-17-24 Encounters Encounter Location Date Provider Diagnosis Ranjit Xiao MD [address] [place] [id number] 06/16/2025 Ranjit Xiao Blood tests for routine general physical examination Z00.00 and Acquired hypothyroidism E03.9 Ranjit Xiao MD [address] [place] [id number] 08/08/2025 Ranjit Xiao Annual physical exam Z00.00 ; Hypothyroid E03.9 ; Colon cancer screening Z12.11 and Depression screening Z13.31 Ranjit Xiao MD [address] [place] [id number] 09/23/2024 Ranjit Xiao MD [address] [place] [id number] 01/20/2025 Ranjit Xiao MD [address] [place] [id number] 01/27/2025 Ranjit Xiao MD [address] [place] [id number] 06/26/2025 Ranjit Xiao MD [address] [place] [id number] 06/11/2025 Ranjit Xiao MD [address] [place] [id number] 06/23/2025 Ranjit Xiao Assessments Encounter Date Diagnosis (ICD Code) Assessment Notes Treatment Notes Treatment Clinical Notes Section Notes 06/16/2025 Blood tests for routine general physical examination (ICD-10 - Z00.00) 08/08/2025 Annual physical exam (ICD-10 - Z00.00) labs reviewed and discussed with patient 08/08/2025 Hypothyroid (ICD-10 - E03.9) tsh is a little a low. but will leave it and recheck in month 06/16/2025 Acquired hypothyroidism (ICD-10 - E03.9) 08/08/2025 Colon cancer screening (ICD-10 - Z12.11) guaiac negative 08/08/2025 Depression screening (ICD-10 - Z13.31) negative screen Plan Of Treatment Pending Test Test Name Order Date Electrocardiogram (EKG) 08/07/2016 Electrocardiogram (EKG) 11/18/2018 ECHO EXAM OF HEART 05/17/2015 XR GI SERIES 06/17/2024 PSA,Total (Free>4and<10) 08/08/2025 Next Appt Details Provider Name:Ranjit anna, 02/05/2026 08:00:00 AM, [address] [place] [address], [address], [phone], Provider Name:Ranjit schultzr, 08/02/2026 06:45:00 AM, [address] [place] [address], [place] [address], [place], [place], [phone], Provider Name:Ranjit schultzr, 08/09/2026 02:30:00 PM, [address] [place] [address], [place] [address], [place], [place], [phone], Insurance Providers Payer Name Payer Address Payer Phone Subscriber Number Group Number Insured Name Patient Relationship to Insured Coverage Start Date Coverage End Date [facility] est [address] [place] [id number] Dwight Rae Self - patient is the insured [facility] [address] [address] [place] [address] [phone] [id number] Dwight Rae Self - patient is the insured Medical (General) History Medical History History ICD Code Refuses flu shot Colonoscopy 02/07 repeat 3y
== END 2025-08-08 13:13 | disposition home or self-care (01) ==
LOC: HO.LNP 13:12
PROVIDERS: Visit Provider Internal Medicine
DX: Z00.00 Encounter for general adult medical examination without abnormal findings (principal); Z12.5 Encounter for screening for malignant neoplasm of prostate
CPT/HCPCS: 84153